=== PATIENT | female | born 1930 ===

== ENCOUNTER 2018-05-21 12:51 | Inpatient (IN) | payer MEDICARE ==
--- NOTE | 2018-05-21 13:35 | RAD ---
Date of service: 05/21/2018 HISTORY: SOB COMPARISON: No prior. FINDINGS: LUNGS: Possible left basilar opacity. Rule out pneumonia. Followup advised. No other abnormal opacity elsewhere. PLEURA: No significant pleural effusion identified, no pneumothorax apparent. CARDIOVASCULAR: Normal heart size. Sternotomy wires noted. Likely status post CABG. OSSEOUS STRUCTURES: No significant abnormalities. VISUALIZED UPPER ABDOMEN: Normal. OTHER FINDINGS: None. IMPRESSION: Left basilar opacity. Rule out pneumonia. Followup advised.
[2018-05-21 13:47] LABS: EOS # 0.1 K/uL (0.0-0.7); EOS % 2.6 % (0.0-4.0); HEMOGLOBIN 14.5 g/dL (12.0-16.0); LYMPH # 0.7 K/uL (1.0-4.3); LYMPH % 15.4 % (20.0-40.0); MEAN CORPUSCULAR HEMOGLOBIN 29.2 pg (27.0-31.0); MEAN CORPUSCULAR HGB CONC 32.5 g/dL (33.0-37.0); MEAN PLATELET VOLUME 8.6 fl (7.2-11.7); MONO # 0.5 K/uL (0.0-0.8); MONO % 11.5 % (0.0-10.0); NEUT # 3.3 K/uL (1.8-7.0); NEUT % 69.5 % (50.0-75.0); NRBC % 0.1 % (0.0-0.0); RBC 4.95 Mil/uL (3.80-5.20); RED CELL DISTRIBUTION WIDTH 14.2 % (11.5-14.5); WHITE BLOOD COUNT 4.8 K/uL (4.8-10.8)
--- NOTE | 2018-05-21 13:53 | ED PDOC ---
HPI: General Adult Time Seen by Provider: 05/21/18 13:00 Chief Complaint (Nursing): Lower Extremity Problem/Injury Chief Complaint (Provider): shortness of breath History Per: Patient, EMS History/Exam Limitations: physical impairment Current Symptoms Are (Timing): Still Present Severity: Moderate Recently: Hospitalized Additional Complaint(s): 87yo female presents via EMS from home c/o SOB, inability to ambulate and generalized weakness. States she was discharged from [facility] last night around midnight but unable to care for self and lives alone, SOB worsened. On home oxygen intermittently for COPD/emphysema, recently increasing O2 requirements. Also notes LE edema L>R. Past Medical History Reviewed: Historical Data, Nursing Documentation, Vital Signs Vital Signs: Last Vital Signs Temp 97.5 F L 05/24/18 08:02 Pulse 59 L 05/24/18 08:02 Resp 20 05/24/18 08:02 BP 137/75 05/24/18 08:02 Pulse Ox 99 05/24/18 08:02 - Medical History PMH: CAD, COPD, HTN - Surgical History Surgical History: CABG - Family History Family History: States: Unknown Family Hx - Living Arrangements Living Arrangements: Alone - Social History Current smoker - smoking cessation education provided: No (quit) - Home Medications Home Medications: Ambulatory Orders Medication Instructions Recorded Albuterol Sulfate [Proair Hfa] 2 puff IH Q6 PRN 05/21/18 Aspirin [Ecotrin] 81 mg PO DAILY 05/21/18 Bisoprolol [Zebeta] 5 mg PO DAILY 05/21/18 Clopidogrel [Plavix] 75 mg PO DAILY 05/21/18 Furosemide [Lasix] 20 mg PO DAILY 05/21/18 Losartan/Hydrochlorothiazide 1 tab PO DAILY 05/21/18 [Losartan-Hctz 100-12.5 mg Tab] - Allergies Allergies/Adverse Reactions: Allergies Allergy/AdvReac Type Severity Reaction Status Date / Time No Known Allergies Allergy Verified 05/21/18 12:53 Review of Systems Constitutional: Negative for: Fever Eyes: Negative for: Vision Change ENT: Negative for: Nose Discharge Cardiovascular: Positive for: Palpitations, Orthopnea, Light Headedness Respiratory: Positive for: Cough, Shortness of Breath Gastrointestinal: Negative for: Abdominal Pain Genitourinary Female: Negative for: Dysuria Musculoskeletal: Negative for: Neck Pain Skin: Negative for: Rash Neurological: Positive for: Dizziness. Negative for: Weakness, Numbness, Headache Psych: Positive for: Anxiety. Negative for: Suicidal ideation Physical Exam - Reviewed Nursing Documentation Reviewed: Yes Vital Signs Reviewed: Yes - Physical Exam Appears: Positive for: Well, Non-toxic, No Acute Distress Head Exam: Positive for: ATRAUMATIC, NORMAL INSPECTION, NORMOCEPHALIC Skin: Positive for: Normal Color, Warm, DRY Eye Exam: Positive for: EOMI, Normal appearance, PERRL ENT: Positive for: Normal ENT Inspection Neck: Positive for: Normal, Painless ROM Cardiovascular/Chest: Positive for: Regular Rate, Rhythm Respiratory: Positive for: Decreased Breath Sounds, Respiratory Distress (mild) Gastrointestinal/Abdominal: Positive for: Soft. Negative for: Tenderness, Guarding Back: Positive for: Normal Inspection Extremity: Positive for: Pedal Edema (b/l), Calf Tenderness, Swelling (LE). Negative for: Deformity Neurologic/Psych: Positive for: Alert, Oriented. Negative for: Motor/Sensory Deficits - Laboratory Results Result Diagrams: 05/23/18 06:30 05/23/18 06:30 - ECG ECG: Positive for: Interpreted By Me ECG Rhythm: Positive for: Sinus Rhythm, ST/T Changes (anterolateral ST changes) Rate: 97 O2 Sat by Pulse Oximetry: 84 Pulse Ox Interpretation: Abnormal (hypoxia on RA) Medical Decision Making Medical Decision Making: workup for dyspnea initiated EKG sinus at 97 w concerning anterolateral ST changes no prior EKGs to compare CXR reveals possible pneumonia. Given hypoxia and presentation will obtain cultures and treat w Abx. Labs reviewed revealing elev trop 0.032 w elevated BNP. PMD Dr Lang contacted no old EKGs Her cardio Dr Anders office contacted no visits in 2 years Last echo 2008- normal Admit mobile application tester Dr Bo Werner to followup CTA chest and admit ICU vs tele. D/w Dr Dubois ICU also - if CTA positive will take to ICU otherwise stable for tele. Dr Colbert mobile application tester cardio contacted and EKGs (initial and repeat) reviewed, will consult. Attempt to get old records from [facility] including prior EKG. Disposition - Clinical Impression Clinical Impression: NSTEMI (non-ST elevated myocardial infarction), Emphysema of lung - Patient ED Disposition Is Patient to be Admitted: Yes - Disposition Disposition: Transfer of Care Disposition Time: 17:00 Condition: SERIOUS - Pt Status Changed To: Hospital Disposition Of: Inpatient - Admit Certification Admit to Inpatient:: After my assessment, the patient will require hospitalization for at least two midnights. This is because of the severity of symptoms shown, intensity of services needed, and/or the medical risk in this patient being treated as an outpatient. - POA Present On Arrival: None
[2018-05-21 13:58] LABS: PROTHROMBIN TIME 10.9 Seconds (9.8-13.1)
[2018-05-21 14:00] LABS: PARTIAL THROMBOPLASTIN TIME 36.2 Seconds (25.6-37.1)
[2018-05-21] MEDS ORDERED: Azithromycin 500 MG in Sodium Chloride 0.9% 250 ML IVPB STA (14:00)
[2018-05-21 14:04] LABS: ALB/GLOB RATIO 1.2 (1.0-2.1); ALT/SGPT 21 U/L (9-52); AST/SGOT 30 U/L (14-36); B-TYPE NATRIURETIC PEPTIDE 10000 pg/ml (0-900); BLOOD UREA NITROGEN 12 mg/dl (7-17); CALCIUM 9.5 mg/dL (8.4-10.2); GFR NON-AFRICAN AMERICAN > 60
[2018-05-21] MEDS ORDERED: cefTRIAXone (Rocephin) 1 gm Inj ONE (14:14)
[2018-05-21] MEDS ORDERED: Albuterol-Ipratrop 3 mg / 0.5 (3 ml) UD INH STA (14:50)
[2018-05-21] MEDS ORDERED: Albuterol-Ipratrop 3 mg / 0.5 (3 ml) UD ONE (15:12)
[2018-05-21] MEDS ORDERED: Azithromycin 500 MG IV IVPB ONE (15:12)
--- NOTE | 2018-05-21 16:21 | CARD ---
APPROVED REPORT Date of service: 05/21/2018 EKG Measurement Heart [id number] <Conclusion> Normal sinus rhythm ST & Marked T wave abnormality, consider anterolateral ischemia Prolonged QT Abnormal ECG
[2018-05-21] MEDS ORDERED: Sodium Chloride 0.9% 50 ML IV ONE (17:33)
[2018-05-21] MEDS ORDERED: Iodixanol 320 MG/ML 100 ML BOTTLE IV ONE (17:33)
--- NOTE | 2018-05-21 18:31 | ED PDOC ---
- Laboratory Results Result Diagrams: 05/22/18 06:00 05/22/18 06:00 - ECG O2 Sat by Pulse Oximetry: 84 (RA) Pulse Ox Interpretation: Normal Medical Decision Making Medical Decision Making: Time: 1699 -- Received endorsement from Dr. Palma. Patient with severe cardiac disease presents to the ED with shortness of breath. Lab work demonstrates elevated Troponin and Pro-BNP levels with EKG findings of Wellens Syndrome. Dr. Palma has discussed with Dr. Johnson of Cardiology, Dr. Pond of Medical Services and Dr. Dubois of ICU. -- At this time, CT Chest to rule out pneumonia and US to rule out DVT are pending. -- Patient to be admitted but placement to ICU vs Telemetry are to be determined after results of CT Chest appear. Time: 2005 CTA RESULTS FINDINGS: Pulmonary arteries: No filling defects within the central, segmental, or visualized subsegmental pulmonary arteries. Aorta: The aorta demonstrates moderate atherosclerotic calcification. No thoracic aortic aneurysm. Lungs: Subpleural reticular opacities throughout both lower lobes with subtle intervening groundglass. Pulmonary evaluation is somewhat limited by respiratory motion. Pleural space: Normal. No significant effusion. No pneumothorax. Heart: Status post coronary artery bypass. Severe calcific atherosclerosis of the [place] coronary arteries. No significant pericardial effusion. No evidence of RV dysfunction. Bones/joints: Median sternotomy. No acute fracture. No dislocation. Soft tissues: Normal. Lymph nodes: Multiple prominent mediastinal lymph nodes are present measuring up to 8mm in the prevascular region and diffuse and extensive osseous demineralization. Arthrosis of the glenohumeral joints. Diffuse thoracic spondylosis. Moderate thoracolumbar levocurvature. No acute osseous abnormality. Extensive centrilobular emphysema intervening 5 mm left apical pulmonary nodule (axial image 13). Gallbladder and bile ducts: Numerous gallstones are present layering within the dependent as the gallbladder. Upper Abdomen: Indeterminate stranding and peritoneal thickening within the imaged right upper quadrant (axial image 126). IMPRESSION: 1. No pulmonary embolism. 2. Diffuse and severe emphysema. 3. Superimposed subpleural reticular and groundglass opacities may represent superimposed interstitial lung disease. 4. Status post coronary bypass with severe calcific atherosclerosis of the [place] coronary arteries. 5. Cholelithiasis. 6. Nonspecific partially imaged right peritoneal thickening or fat stranding within the imaged upper quadrant, only seen on the caudal most images. If there is concern for an abnormality within the abdomen, consider dedicated CT of the abdomen and pelvis. A contrast enhanced exam would offer increased sensitivity and specificity if renal function permits. Thank you for allowing us to participate in the care of your patient. Dictated and Authenticated by: Shayne Tang DO 05/21/2018 8:06 PM Eastern Time ([place] & [place]) DW pt and family findings. Pt will be hospitalized for NSTEMI. Dr Johnson came to ER to evaluate patient and lovenox ordered. Scribe Attestation: Documented by Antonio Mclaughlin acting as a scribe for Dr. Beryl Soriano. Provider Scribe Attestation: All medical record entries made by the Scribe were at my direction and personally dictated by me. I have reviewed the chart and agree that the record accurately reflects my personal performance of the history, physical exam, medical decision making, and the department course for this patient. I have also personally directed, reviewed, and agree with the discharge instructions and disposition. Disposition Counseled Patient/Family Regarding: Studies Performed, Diagnosis - Clinical Impression Clinical Impression: NSTEMI (non-ST elevated myocardial infarction) - POA Present On Arrival: None - Disposition Disposition: Admitted as In-Patient Disposition Time: 20:00 Condition: SERIOUS
[2018-05-21] MEDS ORDERED: Enoxaparin 60 mg Syringe SC STA (21:09)
[2018-05-21] MEDS ORDERED: Magnesium Sulfate 2 gm/50 ml 2 GM/50 ML BAG IVPB ONE (21:09)
[2018-05-21 21:35] LABS: TROPONIN I 0.228 ng/mL (0.00-0.120)
[2018-05-22] MEDS: MethylPREDNISolone 40 mg Vial IVP SCH ×4 (04:19→21:26)
[2018-05-22] MEDS ORDERED: Pneumococcal 23-Valent Vaccine IM ONE (06:23)
[2018-05-22] MEDS: Ipratropium 0.02% Inhal Soln (0.5 mg/2.5 ml) UD IH SCH ×3 (07:11→19:09)
[2018-05-22] MEDS: Levalbuterol 0.63 MG/3 ML Inhal Soln UD INH SCH ×3 (07:11→19:09)
[2018-05-22 07:39] LABS: HEMOGLOBIN 13.5 g/dL (12.0-16.0); MEAN CELL VOLUME 89.1 fl (81.0-99.0); MEAN CORPUSCULAR HEMOGLOBIN 29.3 pg (27.0-31.0); MEAN CORPUSCULAR HGB CONC 32.9 g/dL (33.0-37.0); RBC 4.61 Mil/uL (3.80-5.20); RED CELL DISTRIBUTION WIDTH 13.5 % (11.5-14.5); WHITE BLOOD COUNT 2.6 K/uL (4.8-10.8)
[2018-05-22 07:59] LABS: T4 8.22 ug/dl (5.5-11.0)
[2018-05-22 08:16] LABS: LDL CHOLESTEROL 94 mg/dL (0-129)
--- NOTE | 2018-05-22 08:20 | CARD ---
APPROVED REPORT Date of service: 05/21/2018 <Conclusion> Normal sinus rhythm ST & T wave abnormality, consider inferior ischemia ST & T wave abnormality, consider anterolateral ischemia Prolonged QT Abnormal ECG
[2018-05-22 08:27] LABS: ALB/GLOB RATIO 1.2 (1.0-2.1); ALBUMIN 3.3 g/dL (3.5-5.0); ALT/SGPT 20 U/L (9-52); AST/SGOT 29 U/L (14-36); BLOOD UREA NITROGEN 11 mg/dl (7-17); GFR NON-AFRICAN AMERICAN > 60; HDL CHOLESTEROL 57 MG/DL (30-70)
[2018-05-22] MEDS ORDERED: Azithromycin 500 MG in Sodium Chloride 0.9% 250 ML IVPB SCH ×2 (09:00→16:15)
--- NOTE | 2018-05-22 09:00 | CP.PCM.CON ---
History of Present Illness - History of Present Illness History of Present Illness: CONSULT DONE ON 05/21/18 925PM asked to see pt by dr ricci. 87 y/o female admitted secondary to cheswt pressure with minimal exertion. 4/10, nonradiating, midsternal tightness. occurs with exertion and relieved with rest. occasionally will occur at rest. associated with dyspnea, palp and feeling of doom. 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 pt has a hx of 4 vessel cabg in 2001. she does not recall having any cardiac caths after cabg. Review of Systems - Constitutional Constitutional: As Per HPI, Fatigue. absent: Anorexia, Chills, Daytime Sleepiness, Excessive Sweating, Fever, Frequent Falls, Headache, Increased Appetite, Malaise, Night Sweats, Snoring, Sleep Apnea, Weight Gain, Weight Loss , Weakness, Other - EENT Eyes: As Per HPI. absent: Blind Spots, Blurred Vision, Change in Vision, Decreased Night Vision, Diplopia, Discharge, Dry Eye, Exophthalmos, Floaters, Irritation, Itchy Eyes, Loss of Peripheral Vision, Pain, Photophobia, Requires Corrective Lenses, Sees Flashes, Spots in Vision, Tunnel Vision, Other Visual Disturbances, Loss of Vision, Other Ears: As Per HPI. absent: Decreased Hearing, Ear Discharge, Ear Pain, Tinnitus , Abnormal Hearing, Disequilibrium, Dizziness, Other Nose/Mouth/Throat: As Per HPI. absent: Epistaxis, Nasal Congestion, Nasal Discharge, Nasal Obstruction, Nasal Trauma, Nose Pain, Post Nasal Drip, Sinus Pain, Sinus Pressure, Bleeding Gums, Change in Voice, Dental Pain, Dry Mouth, Dysphagia, Halitosis, Hoarsness, Lip Swelling, Mouth Lesions, Mouth Pain, Odynophagia, Sore Throat, Throat Swelling, Tongue Swelling, Facial Pain, Neck Pain, Neck Mass, Other - Breasts Breasts: As Per HPI. absent: Change in Shape, Mass, Pain, Nipple Discharge, Nipple Inversion, Skin Changes, Swelling, Other - Cardiovascular Cardiovascular: As Per HPI, Chest Pain at Rest, Chest Pain with Activity, Dyspnea on Exertion, Leg Edema. absent: Acrocyanosis, Chest Pain, Claudication , Diaphoresis, Dyspnea, Edema, Irregular Heart Rhythm, Pain Radiating to Arm/ Neck/Jaw, Leg Ulcers, Lightheadedness, Orthopnea, Palpitations, Paroxysmal Nocturnal Dyspnea, Pedal Edema, Radiating Pain, Rapid Heart Rate, Slow Heart Rate, Syncope, Other - Respiratory Respiratory: As Per HPI, Dyspnea. absent: Cough, Hemoptysis, Dyspnea on Exertion, Wheezing, Snoring, Stridor, Pain on Inspiration, Chest Congestion, Excessive Mucous Production, Change in Mucous Color, Pain with Coughing, Other - Gastrointestinal Gastrointestinal: As Per HPI. absent: Abdominal Pain, Belching, Bloating, Change in Bowel Habits, Change in Stool Character, Coffee Ground Emesis, Constipation, Cramping, Diarrhea, Dyspepsia, Dysphagia, Early Satiety, Excessive Flatus, Fecal Incontinence, Heartburn, Hematemesis, Hematochezia, Loose Stools, Melena, Nausea, Odynophagia, Temesmus, Vomiting, Other - Genitourinary Genitourinary: As Per HPI. absent: Change in Urinary Stream, Difficulty Urinating, Dysuria, Flank Pain, Hematuria, Pyuria, Nocturia, Urinary Incontinence, Urinary Frequency, Urinary Hesitance, Urinary Urgency, Voiding Freq/Small Amts, Freq UTI, Hx Renal/Bladder Calculi, Hx /Renal Surgery, Bladder Distension, Other - Reproductive: Female Reproductive:Female: As Per HPI. absent: Amenorrhea, Amenorrhea/ Control, Currently Menstual, Cycle <21 Days, Cycle >35 Days, Cycle Variable, Menses 1-7 Days, Menses >/= 8 Days, Menses Variable, Cycle > 4 Weeks Between, No Menses for 6 Months, Heavy Menses, Light Menses, Normal Menses, Spotting Between Cycles , S/P Hysterectomy, Menopausal, Post Menopausal, Premenarche, Abnormal Vaginal Bleeding, Dysmenorrhea, Dyspareunia, Genital Lesions, Genital Pruritis, Pelvic Pain, Prolapse Symptoms, Sexual Dysfunction, Vaginal Discharge, Vaginal Dryness , Vaginal Odor, Vaginal Pruritis, Other - Menstruation Menstruation: As Per HPI. absent: Amenorrhea, Amenorrhea/ Control, Currently Menstual, Cycle <21 Days, Cycle >35 Days, Cycle Variable, Menses 1-7 Days, Menses >/= 8 Days, Menses Variable, Cycle > 4 Weeks Between, No Menses for 6 Months, Heavy Menses, Light Menses, Normal Menses, Spotting Between Cycles , S/P Hysterectomy, Menopausal, Post Menopausal, Premenarche, Abnormal Vaginal Bleeding, Dysmenorrhea, Other - Musculoskeletal Musculoskeletal: As Per HPI. absent: Abnormal Gait, Arthralgias, Atrophy, Back Pain, Deformity, Joint Swelling, Limited Range of Motion, Loss of Height, Muscle Cramps, Muscle Weakness, Myalgias, Neck Pain, Numbness, Radiating Pain into Limb, Stiffness, Tingling, Other - Integumentary Integumentary: As Per HPI. absent: Acne, Alopecia, Bleeding Lesions, Change in Hair, Change in Nails, Change in Pigmentation, Changing Lesions, Dry Skin, Erythema, Furuncle, Hirsutism, Lesions, New Lesions, Non-Healing Lesions, Photosensitivity, Pruritus, Rash, Skin Pain, Skin Ulcer, Sores, Striae, Swelling , Unusual Bruising, Wounds, Jaundice, Other - Neurological Neurological: As Per HPI. absent: Abnormal Gait, Abnormal Hearing, Abnormal Movements, Abnormal Speech, Behavioral Changes, Burning Sensations, Confusion, Convulsions, Disequilibrium, Dizziness, Numbness, Focal Weakness, Frequent Falls , Headaches, Lack of Coordination, Loss of Vision, Memory Loss, Paresthesias, Radicular Pain, Restless Legs, Sensory Deficit, Syncope, Tingling, Tremor, Vertigo, Weakness, Other Visual Disturbances, Other - Psychiatric Psychiatric: As Per HPI. absent: Abnormal Sleep Pattern, Anhedonia, Anxiety, Auditory Hallucinations, Behavioral Changes, Change in Appetite, Change in Libido, Confusion, Depression, Difficulty Concentrating, Hallucinations, Homicidal Ideation, Hopelessness, Irritability, Memory Loss, Mood Swings, Panic Attacks, Paranoia, Suicidal Ideation, Visual Hallucinations, Tactile Hallucinations, Other - Endocrine Endocrine: As Per HPI. absent: Change in Body Appearance, Change in Libido, Cold Intolorance, Deepening of Voice, Excessive Sweating, Fatigue, Flushing, Heat Intolorance, Increase in Ring/Shoe/Hat Size, Palpitations, Polydipsia, Polyphagia, Polyuria, Other - Hematologic/Lymphatic Hematologic: As Per HPI. absent: Easy Bleeding, Easy Bruising, Lymphadenopathy , Other Past Patient History - Past Medical History & Family History Past Medical History?: Yes - Past Social History Smoking Status: Former Smoker Chewing Tobacco Use: No Cigar Use: No Alcohol: None Drugs: Denies Home Situation {Lives}: Alone Domestic Violence: Negative - CARDIAC Hx Cardiac Disorders: Yes Hx Hypertension: Yes Other/Comment: cabg as above - PULMONARY Hx Respiratory Disorders: Yes Hx Chronic Obstructive Pulmonary Disease (COPD): Yes - HEENT Hx Cataracts: Yes - RENAL Hx Chronic Kidney Disease: No - ENDOCRINE/METABOLIC Hx Endocrine Disorders: No - MUSCULOSKELETAL/RHEUMATOLOGICAL Hx Falls: No Hx Unsteady Gait: Yes - GASTROINTESTINAL Hx Gastrointestinal Disorders: No - GENITOURINARY/GYNECOLOGICAL Hx Genitourinary Disorders: No - PSYCHIATRIC Hx Substance Use: No - SURGICAL HISTORY Hx Coronary Artery Bypass Graft: Yes - ANESTHESIA Hx Anesthesia: Yes Hx Anesthesia Reactions: No Hx Malignant Hyperthermia: No Has any member of the family had a problem w/ anesthesia?: No Meds Allergies/Adverse Reactions: Allergies Allergy/AdvReac Type Severity Reaction Status Date / Time No Known Allergies Allergy Verified 05/21/18 12:53 - Medications Medications: Current Medications Aspirin (Ecotrin) 325 mg PO DAILY [facility] Bisoprolol Fumarate (Zebeta) 5 mg PO DAILY [facility] Clopidogrel Bisulfate (Plavix) 75 mg PO DAILY [facility] Enoxaparin Sodium (Lovenox) 60 mg SC Q12 [facility] PRN Reason: Protocol Furosemide (Lasix) 20 mg PO DAILY [facility] Hydrochlorothiazide (Microzide) 12.5 mg PO DAILY [facility] Ceftriaxone Sodium 1 gm/ (Sodium Chloride) 100 mls @ 100 mls/hr IVPB DAILY [facility] PRN Reason: Protocol Azithromycin 500 mg/ Sodium (Chloride) 250 mls @ 250 mls/hr IVPB DAILY [facility] PRN Reason: Protocol Ipratropium [place] (Atrovent) 0.5 mg IH RQ6 [facility] Last Admin: 05/22/18 07:11 Dose: 0.5 mg Levalbuterol HCl (Xopenex) 0.63 mg INH RQ6 [facility] Last Admin: 05/22/18 07:11 Dose: 0.63 mg Losartan Potassium (Cozaar) 100 mg PO DAILY [facility] Methylprednisolone (Solu-Medrol) 30 mg IVP Q6 [facility] Last Admin: 05/22/18 04:19 Dose: 30 mg Physical Exam - Constitutional Appears: Non-toxic - Head Exam Head Exam: ATRAUMATIC, NORMAL INSPECTION, NORMOCEPHALIC - Eye Exam Eye Exam: EOMI, Normal appearance, PERRL. absent: Conjunctival injection, Nystagmus, Periorbital swelling, Periorbital tenderness, Scleral icterus Pupil Exam: NORMAL ACCOMODATION, PERRL. absent: Fixed, Irregular, Miosis, Mydriatic, Unequal - ENT Exam ENT Exam: Mucous Membranes Moist, Normal Exam. absent: Mucous Membranes Dry, Normal External Ear Exam, Normal Oropharynx, TM's Normal Bilaterally - Neck Exam Neck exam: Positive for: Normal Inspection. Negative for: Full Rom, Lymphadenopathy, Meningismus, Tenderness, Thyromegaly - Respiratory Exam Respiratory Exam: Decreased Breath Sounds, Clear to Auscultation Bilateral, Prolonged Expiratory Phase, NORMAL BREATHING PATTERN. absent: Accessory Muscle Use, Chest Wall Tenderness, Rales, Rhonchi, Wheezes, Respiratory Distress, Stridor - Cardiovascular Exam Cardiovascular Exam: REGULAR RHYTHM, +S1, +S2, Systolic Murmur. absent: Bradycardia, Tachycardia, Clicks, Diastolic murmur, Gallop, Irregular Rhythm, JVD, RRR, Rubs, +S4 - GI/Abdominal Exam GI & Abdominal Exam: Normal Bowel Sounds, Soft. absent: Bruit, Diminished Bowel Sounds, Distended, Firm, Guarding, Hernia, Hyperactive Bowel Sounds, Hypoactive Bowel Sounds, Mass, Organomegaly, Pulsatile Mass, Rebound, Rigid, Tenderness - Rectal Exam Rectal Exam: Deferred - Extremities Exam Extremities exam: Positive for: normal inspection. Negative for: calf tenderness, full ROM, joint swelling, normal capillary refill, pedal edema, tenderness, pedal pulses present - Back Exam Back exam: NORMAL INSPECTION. absent: CVA tenderness (L), CVA tenderness (R), FULL ROM, muscle spasm, paraspinal tenderness, rash noted, tenderness, vertebral tenderness - Neurological Exam Neurological exam: Alert, CN II-XII Intact, Normal Gait, Oriented x3, Reflexes Normal - Psychiatric Exam Psychiatric exam: Normal Affect, Normal Mood - Skin Skin Exam: Dry, Intact, Normal Color, Warm Results - Vital Signs Recent Vital Signs: Last Vital Signs Temp 97.6 F 05/22/18 07:59 Pulse 75 05/22/18 07:59 Resp 18 05/22/18 07:59 BP 123/76 05/22/18 07:59 Pulse Ox 96 05/22/18 07:59 - Labs Result Diagrams: 05/22/18 06:00 05/22/18 06:00 Labs: Laboratory Results - last 24 hr 05/21/18 05/21/18 05/21/18 13:34 13:34 13:34 WBC 4.8 RBC 4.95 Hgb 14.5 Hct 44.6 MCV 90.0 MCH 29.2 MCHC 32.5 L RDW 14.2 Plt Count 274 MPV 8.6 Neut % (Auto) 69.5 Lymph % (Auto) 15.4 L Lewis % (Auto) 11.5 H Eos % (Auto) 2.6 Baso % (Auto) 1.0 Neut # (Auto) 3.3 Lymph # (Auto) 0.7 L Lewis # (Auto) 0.5 Eos # (Auto) 0.1 Baso # (Auto) 0.0 PT 10.9 INR 1.0 APTT 36.2 Sodium 140 Potassium 4.3 Chloride 94 L Carbon Dioxide 39 H Anion Gap 11 BUN 12 Creatinine 0.6 L Est GFR ( Amer) > 60 Est GFR (Non-Af Amer) > 60 Random Glucose 141 H Calcium 9.5 Total Bilirubin 0.9 AST 30 ALT 21 Alkaline Phosphatase 82 Troponin I 0.3210 H* NT-Pro-B Natriuret Pep 90544 H Total Protein 7.2 Albumin 4.0 Globulin 3.2 Albumin/Globulin Ratio 1.2 Triglycerides Cholesterol LDL Cholesterol Direct HDL Cholesterol Thyroxine (T4) TSH 3rd Generation 05/21/18 05/22/18 05/22/18 20:53 06:00 06:00 WBC 2.6 L RBC 4.61 Hgb 13.5 Hct 41.0 MCV 89.1 MCH 29.3 MCHC 32.9 L RDW 13.5 Plt Count 275 MPV Neut % (Auto) Lymph % (Auto) Lewis % (Auto) Eos % (Auto) Baso % (Auto) Neut # (Auto) Lymph # (Auto) Lewis # (Auto) Eos # (Auto) Baso # (Auto) PT INR APTT Sodium 137 Potassium 4.0 Chloride 96 L Carbon Dioxide 38 H Anion Gap 7 L BUN 11 Creatinine 0.6 L Est GFR ( Amer) > 60 Est GFR (Non-Af Amer) > 60 Random Glucose 124 H Calcium 9.0 Total Bilirubin 0.6 AST 29 ALT 20 Alkaline Phosphatase 64 Troponin I 0.2280 H* 0.1850 H* NT-Pro-B Natriuret Pep 56714 H Total Protein 5.9 L Albumin 3.3 L Globulin 2.6 Albumin/Globulin Ratio 1.2 Triglycerides 87 Cholesterol 184 LDL Cholesterol Direct 94 HDL Cholesterol 57 Thyroxine (T4) 8.22 TSH 3rd Generation 0.79 Assessment & Plan (1) NSTEMI (non-ST elevated myocardial infarction) Status: Acute (2) Hx of CABG Status: Acute (3) Hx of four vessel coronary artery bypass graft Status: Acute (4) HTN (hypertension) Status: Acute (5) Dyslipidemia Status: Acute (6) COPD (chronic obstructive pulmonary disease) Status: Acute (7) History of tobacco abuse Status: Acute (8) Prolonged Q-T interval on ECG Status: Acute - Assessment and Plan (Free Text) Plan: PT WILL NEED CATH (WITH SURGICAL BACK UP). WILL SCHEDULE FOR CATH AT [facility] [place] ON THURSDAY. 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 I STOPPED AZITHROMYOCIN DUE TO QT PROLONGATION AND T WAVE ABN CHECK ECHO, MONITOR TROP AND QT STOP HCTZ ASA, LOVENOX, INCREASE BB DOSE DONE PRN SL NTG 95 MIN TOTAL CARE TIME.
[2018-05-22] MEDS: Enoxaparin 60 mg Syringe SC SCH ×4 (09:15→21:26)
[2018-05-22] MEDS: Aspirin 325 mg EC Tablets PO SCH (09:25)
--- NOTE | 2018-05-22 16:52 | US ---
Date of service: 05/21/2018 PROCEDURE: Bilateral lower extremity venous duplex Doppler. HISTORY: Edema LE pain COMPARISON: None available. TECHNIQUE: Bilateral common femoral, superficial femoral, popliteal and posterior tibial veins were evaluated. Flow was assessed with color Doppler, compressibility, assessment of phasic flow and augmentation response. FINDINGS: COMMON FEMORAL VEIN: Right CFV: Unremarkable. Left CFV: Unremarkable. SUPERFICIAL FEMORAL VEIN: Right SFV: Unremarkable. Left SFV: Unremarkable. POPLITEAL VEIN: Right Popliteal: Unremarkable. Left Popliteal: Unremarkable. POSTERIOR TIBIAL VEIN: Right PTV: Unremarkable. Left PTV: Unremarkable. OTHER FINDINGS: None. IMPRESSION: No evidence of deep venous thrombosis.
--- NOTE | 2018-05-22 17:25 | CT ---
Date of service: 05/21/2018 PROCEDURE: CT Chest with contrast (Pulmonary Angiogram) HISTORY: SOB elevated BNP and trop r/o PE COMPARISON: None available. TECHNIQUE: Axial computed tomography images were obtained of the chest in the pulmonary arterial phase of enhancement. Coronal and sagittal reformatted images were created and reviewed. Intravenous contrast dose: 85 cc Visipaque 320 Radiation dose: Total exam DLP = 276.91 mGy-cm. This CT exam was performed using one or more of the following dose reduction techniques: Automated exposure control, adjustment of the mA and/or kV according to patient size, and/or use of iterative reconstruction technique. FINDINGS: PULMONARY ARTERIES: The visualized pulmonary trunk, right and left main, lobar, segmental and proximal subsegmental branches of the pulmonary arteries appear well opacified with no definitive filling defects seen to suggest acute central pulmonary embolus. Pulmonary trunk measures approximately 3.2 cm. AORTA: No acute findings. No thoracic aortic aneurysm. Ascending thoracic aorta measures approximately 3.3 cm and descending thoracic aorta measures approximately 2.5 cm. LUNGS: Severe centrilobular/panlobular emphysematous changes upper lobe predominance. Mild passive/dependent type atelectasis both posterior lower lung zones right greater than left. . PLEURAL SPACES: Unremarkable. No effusion or pneumothorax. HEART: Heart size within range of normal. No significant pericardial effusion. Sternotomy and CABG surgery. No significant pericardial effusion. LYMPH NODES: There are a few small nonspecific mediastinal and hilar lymph nodes. Small hiatal hernia with slight wall thickening of the distal esophagus likely due to protrusion gastric mucosa. Possibility of esophagitis not excluded. BONES, CHEST WALL: Multilevel degenerative spondylosis of the thoracic spine. No acute compression fractures no retropulsed fragments. Degenerative osteoarthritis both shoulder girdles OTHER FINDINGS: Cholelithiasis. Questionable on linear peritoneal thickening right upper quadrant of the abdomen IMPRESSION: No evidence pulmonary embolus. Severe emphysematous changes upper lobe predominance as above. Cholelithiasis Nonspecific appearing peritoneal thickening right upper quadrant of the abdomen. Consider followup CT scan of the abdomen and pelvis.
--- NOTE | 2018-05-22 19:47 | CP.PCM.HP ---
History of Present Illness - History of Present Illness History of Present Illness: CC: SOB. 87 y/o F, Hx of CABG with 4 vessels on 2001, HTN, CHF, COPD. Pt was brought to ER [facility] on 05/21/18 via EMS to be evaluated for increased SOB on DOA associated to BARR, generalized weakness unable to ambulate. Pt was discharged night [employer] from [facility] but was unable to care for self, while at home SOB increased, Pt using O2 at home for COPD, Emphysema with no relief. Worsening symptoms: Midsternal chest pressure/tightness on minimal exertion and at times at rest. Aggravated factor: Walking. Pt denied: Fever, chills, sweats, n/v/d, abdominal pain, urinary symptoms, cough, sick contact, recent travel out of [facility]. CXR showed: L basilar opacity , rule out PNA. EKG: Normal sinus rhythm, ST and T wave abnormality, consider inferior and anterolateral ischemia. Ext U-S: No DVT. Chest CT: Severe emphysematous changes upper lobe, atelectasis lower lobes R>L. Present on Admission - Present on Admission Any Indicators Present on Admission: No Review of Systems - Constitutional Constitutional: Weakness - EENT Eyes: Other Visual Disturbances (cataracts) Nose/Mouth/Throat: Other (negative) - Cardiovascular Cardiovascular: Chest Pain, Chest Pain at Rest, Chest Pain with Activity, Dyspnea - Respiratory Respiratory: Dyspnea, Dyspnea on Exertion - Gastrointestinal Gastrointestinal: Other (negative) - Genitourinary Genitourinary: Other (negative) - Musculoskeletal Musculoskeletal: Muscle Weakness - Integumentary Integumentary: Other (negative) - Neurological Neurological: Weakness - Psychiatric Psychiatric: Other (negative) - Endocrine Endocrine: Other (negative) - Hematologic/Lymphatic Hematologic: Other (negative) Past Patient History - Past Medical History & Family History Past Medical History?: Yes Pertinent Family History: Unknown - Past Social History Smoking Status: Former Smoker Chewing Tobacco Use: No Cigar Use: No Alcohol: None Drugs: Denies Home Situation {Lives}: Alone Domestic Violence: Negative - CARDIAC Hx Cardiac Disorders: Yes Hx Hypertension: Yes Other/Comment: cabg as above - PULMONARY Hx Respiratory Disorders: Yes Hx Chronic Obstructive Pulmonary Disease (COPD): Yes - HEENT Hx Cataracts: Yes - RENAL Hx Chronic Kidney Disease: No - ENDOCRINE/METABOLIC Hx Endocrine Disorders: No - MUSCULOSKELETAL/RHEUMATOLOGICAL Hx Falls: No Hx Unsteady Gait: Yes - GASTROINTESTINAL Hx Gastrointestinal Disorders: No - GENITOURINARY/GYNECOLOGICAL Hx Genitourinary Disorders: No - PSYCHIATRIC Hx Substance Use: No - SURGICAL HISTORY Hx Coronary Artery Bypass Graft: Yes - ANESTHESIA Hx Anesthesia: Yes Hx Anesthesia Reactions: No Hx Malignant Hyperthermia: No Has any member of the family had a problem w/ anesthesia?: No Meds Allergies/Adverse Reactions: Allergies Allergy/AdvReac Type Severity Reaction Status Date / Time No Known Allergies Allergy Verified 05/21/18 12:53 Physical Exam - Constitutional Appears: Chronically Ill - Head Exam Head Exam: NORMAL INSPECTION - Eye Exam Eye Exam: PERRL - ENT Exam ENT Exam: Normal Oropharynx - Neck Exam Neck exam: Positive for: Normal Inspection - Respiratory Exam Respiratory Exam: Decreased Breath Sounds (b/l) - Cardiovascular Exam Cardiovascular Exam: REGULAR RHYTHM, Systolic Murmur - GI/Abdominal Exam GI & Abdominal Exam: Normal Bowel Sounds, Soft - Extremities Exam Additional comments: legs edema - Back Exam Back exam: NORMAL INSPECTION - Neurological Exam Neurological exam: Alert, CN II-XII Intact, Oriented x3, Reflexes Normal - Psychiatric Exam Psychiatric exam: Normal Mood - Skin Skin Exam: Normal Color, Warm Results - Vital Signs Recent Vital Signs: Last Vital Signs Temp 98.9 F 05/22/18 19:45 Pulse 76 05/22/18 19:45 Resp 16 05/22/18 19:45 BP 126/59 L 05/22/18 19:45 Pulse Ox 95 05/22/18 19:45 reviewed Rosangela - Labs Result Diagrams: 05/22/18 06:00 05/22/18 06:00 Labs: Laboratory Results - last 24 hr 05/21/18 05/22/18 05/22/18 20:53 06:00 06:00 WBC 2.6 L RBC 4.61 Hgb 13.5 Hct 41.0 MCV 89.1 MCH 29.3 MCHC 32.9 L RDW 13.5 Plt Count 275 Sodium 137 Potassium 4.0 Chloride 96 L Carbon Dioxide 38 H Anion Gap 7 L BUN 11 Creatinine 0.6 L Est GFR ( Amer) > 60 Est GFR (Non-Af Amer) > 60 Random Glucose 124 H Calcium 9.0 Total Bilirubin 0.6 AST 29 ALT 20 Alkaline Phosphatase 64 Troponin I 0.2280 H* 0.1850 H* NT-Pro-B Natriuret Pep 14476 H Total Protein 5.9 L Albumin 3.3 L Globulin 2.6 Albumin/Globulin Ratio 1.2 Triglycerides 87 Cholesterol 184 LDL Cholesterol Direct 94 HDL Cholesterol 57 Thyroxine (T4) 8.22 TSH 3rd Generation 0.79 reviewed J.P. - EKG Data EKG comments: reviewed J.P. - Imaging and Cardiology Chest x-ray Status: Report reviewed by me (Esther.) CT scan - chest Status: Report reviewed by me (ReinierP.) Assessment & Plan (1) NSTEMI (non-ST elevated myocardial infarction) Status: Acute Priority: High (2) Prolonged Q-T interval on ECG Status: Acute Priority: High (3) Emphysema of lung Status: Chronic Priority: High (4) COPD (chronic obstructive pulmonary disease) Status: Chronic Priority: High (5) Hx of CABG Status: Chronic Priority: High (6) Hx of four vessel coronary artery bypass graft Status: Chronic Priority: High (7) HTN (hypertension) Status: Chronic Priority: Medium (8) Dyslipidemia Status: Chronic Priority: Medium (9) History of tobacco abuse Status: Chronic Priority: Medium - Assessment and Plan (Free Text) Plan: Continue O2 2 L/M, NTG S/L prn, Lovenox, ASA, Rocephin, Solu_medrol, Xopenex and rest of Tx, Cardiology consult appreciated. KEVAN holloway. - Date & Time Date: 05/22/18 Time: 14:30
[2018-05-23] MEDS: Levalbuterol 0.63 MG/3 ML Inhal Soln UD INH SCH ×5 (01:00→19:06)
[2018-05-23] MEDS: Ipratropium 0.02% Inhal Soln (0.5 mg/2.5 ml) UD IH SCH ×5 (01:00→19:06)
[2018-05-23] MEDS: MethylPREDNISolone 40 mg Vial IVP SCH ×4 (04:47→21:09)
[2018-05-23 07:11] LABS: MEAN CELL VOLUME 89.8 fl (81.0-99.0); MEAN CORPUSCULAR HEMOGLOBIN 29.7 pg (27.0-31.0); MEAN CORPUSCULAR HGB CONC 33.1 g/dL (33.0-37.0); RBC 4.73 Mil/uL (3.80-5.20); WHITE BLOOD COUNT 4.9 K/uL (4.8-10.8)
[2018-05-23 07:41] LABS: B-TYPE NATRIURETIC PEPTIDE 13600 pg/ml (0-900)
[2018-05-23 07:52] LABS: ALB/GLOB RATIO 1.3 (1.0-2.1); ALBUMIN 3.6 g/dL (3.5-5.0); ALT/SGPT 22 U/L (9-52); AST/SGOT 28 U/L (14-36); BLOOD UREA NITROGEN 14 mg/dl (7-17); CALCIUM 9.7 mg/dL (8.4-10.2); GFR NON-AFRICAN AMERICAN > 60
[2018-05-23] MEDS: Aspirin 325 mg EC Tablets PO SCH (09:04)
[2018-05-23] MEDS: Enoxaparin 60 mg Syringe SC SCH ×2 (09:09→21:09)
--- NOTE | 2018-05-23 11:56 | CARD ---
APPROVED REPORT Date of service: 05/22/2018 EKG Measurement Heart [id number] <Conclusion> Normal sinus rhythm Low voltage QRS Nonspecific T wave abnormality Abnormal ECG
--- NOTE | 2018-05-23 15:27 | CP.PCM.PN ---
Subjective - Date & Time of Evaluation Date of Evaluation: 05/23/18 - Subjective Subjective: F/U NSTEMI no C/P, no SOB, no Chest congestion Objective - Vital Signs/Intake and Output Vital Signs (last 24 hours): Temp Pulse Resp BP Pulse Ox 97.9 F 62 18 117/66 96 05/23/18 12:17 05/23/18 12:17 05/23/18 12:17 05/23/18 12:17 05/23/18 12:17 - Medications Medications: Current Medications Aspirin (Ecotrin) 325 mg PO DAILY [facility] Last Admin: 05/23/18 09:04 Dose: 325 mg Bisoprolol Fumarate (Zebeta) 10 mg PO DAILY [facility] Last Admin: 05/23/18 09:07 Dose: 10 mg Clopidogrel Bisulfate (Plavix) 75 mg PO DAILY [facility] Last Admin: 05/23/18 09:04 Dose: 75 mg Enoxaparin Sodium (Lovenox) 60 mg SC Q12 [facility] PRN Reason: Protocol Last Admin: 05/23/18 09:09 Dose: 60 mg Furosemide (Lasix) 20 mg PO DAILY [facility] Last Admin: 05/23/18 09:07 Dose: 20 mg Hydrochlorothiazide (Microzide) 12.5 mg PO DAILY [facility] Last Admin: 05/23/18 09:07 Dose: 12.5 mg Ceftriaxone Sodium 1 gm/ (Sodium Chloride) 100 mls @ 100 mls/hr IVPB DAILY [facility] PRN Reason: Protocol Last Admin: 05/23/18 09:10 Dose: 100 mls/hr Ipratropium [place] (Atrovent) 0.5 mg IH RQ6 [facility] Last Admin: 05/23/18 14:17 Dose: 0.5 mg Levalbuterol HCl (Xopenex) 0.63 mg INH RQ6 [facility] Last Admin: 05/23/18 14:17 Dose: 0.63 mg Losartan Potassium (Cozaar) 100 mg PO DAILY [facility] Last Admin: 05/23/18 09:05 Dose: 100 mg Methylprednisolone (Solu-Medrol) 30 mg IVP Q6 [facility] Last Admin: 05/23/18 09:08 Dose: 30 mg - Labs Labs: 05/23/18 06:30 05/23/18 06:30 PT 10.9 Seconds (9.8-13.1) 08/24/18 13:34 INR 1.0 05/21/18 13:34 APTT 36.2 Seconds (25.6-37.1) 05/21/18 13:34 - Constitutional Appears: No Acute Distress - Head Exam Head Exam: NORMAL INSPECTION - Eye Exam Eye Exam: PERRL - ENT Exam ENT Exam: Normal Exam - Neck Exam Neck Exam: Normal Inspection - Respiratory Exam Respiratory Exam: Clear to Ausculation Bilateral - Cardiovascular Exam Cardiovascular Exam: REGULAR RHYTHM - GI/Abdominal Exam GI & Abdominal Exam: Soft, Normal Bowel Sounds - Extremities Exam Extremities Exam: Pedal Edema (R leg, L leg no edema , chronic skin changes distal R L leg and feet) - Back Exam Back Exam: NORMAL INSPECTION - Neurological Exam Neurological Exam: Alert, CN II-XII Intact Additional comments: no focal motor/sensory deficit - Psychiatric Exam Psychiatric exam: Normal Affect - Skin Skin Exam: Warm Assessment and Plan (1) NSTEMI (non-ST elevated myocardial infarction) Status: Acute (2) Prolonged Q-T interval on ECG Status: Acute (3) Emphysema of lung Status: Chronic (4) COPD (chronic obstructive pulmonary disease) Status: Chronic (5) Hx of CABG Status: Chronic (6) 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 - Assessment and Plan (Free Text) Plan: continue Lovenox, Plavix, Lasix,Atrovent , Xopenex and rest of treatment, for Cardiac Cath
[2018-05-24] MEDS: Ipratropium 0.02% Inhal Soln (0.5 mg/2.5 ml) UD IH SCH ×5 (01:00→23:42)
[2018-05-24] MEDS: Levalbuterol 0.63 MG/3 ML Inhal Soln UD INH SCH ×4 (01:00→19:10)
[2018-05-24] MEDS: Enoxaparin 60 mg Syringe SC SCH ×2 (09:02→21:19)
[2018-05-24] MEDS: MethylPREDNISolone 40 mg Vial IVP SCH ×2 (09:04→21:19)
[2018-05-24] MEDS ORDERED: Pneumococcal 23-Valent Vaccine IM ONE (10:00)
--- NOTE | 2018-05-24 11:51 | CP.PCM.PN ---
Subjective - Date & Time of Evaluation Date of Evaluation: 05/24/18 - Subjective Subjective: F/U NSTEMI no AD, no SOB, no C/P Objective - Vital Signs/Intake and Output Vital Signs (last 24 hours): Temp Pulse Resp BP Pulse Ox 97.5 F L 97 H 20 137/75 84 L 05/24/18 08:02 05/24/18 11:14 05/24/18 08:02 05/24/18 08:02 05/24/18 11:14 - Medications Medications: Current Medications Aspirin (Ecotrin) 325 mg PO DAILY [facility] Last Admin: 05/23/18 09:04 Dose: 325 mg Bisoprolol Fumarate (Zebeta) 10 mg PO DAILY [facility] Last Admin: 05/23/18 09:07 Dose: 10 mg Clopidogrel Bisulfate (Plavix) 75 mg PO DAILY [facility] Last Admin: 05/23/18 09:04 Dose: 75 mg Enoxaparin Sodium (Lovenox) 60 mg SC Q12 [facility] PRN Reason: Protocol Last Admin: 05/24/18 09:02 Dose: Not Given Furosemide (Lasix) 20 mg PO DAILY [facility] Last Admin: 05/23/18 09:07 Dose: 20 mg Hydrochlorothiazide (Microzide) 12.5 mg PO DAILY [facility] Last Admin: 05/23/18 09:07 Dose: 12.5 mg Ceftriaxone Sodium 1 gm/ (Sodium Chloride) 100 mls @ 100 mls/hr IVPB DAILY [facility] PRN Reason: Protocol Last Admin: 05/24/18 09:03 Dose: 100 mls/hr Ipratropium [place] (Atrovent) 0.5 mg IH RQ6 [facility] Last Admin: 05/24/18 07:37 Dose: 0.5 mg Levalbuterol HCl (Xopenex) 0.63 mg INH RQ6 [facility] Last Admin: 05/24/18 07:37 Dose: 0.63 mg Losartan Potassium (Cozaar) 100 mg PO DAILY [facility] Last Admin: 05/23/18 09:05 Dose: 100 mg Methylprednisolone (Solu-Medrol) 30 mg IVP Q12 [facility] Last Admin: 05/24/18 09:04 Dose: 30 mg - Labs Labs: 05/23/18 06:30 05/23/18 06:30 PT 10.9 Seconds (9.8-13.1) 05/21/18 13:34 INR 1.0 05/21/18 13:34 APTT 36.2 Seconds (25.6-37.1) 05/21/18 13:34 - Constitutional Appears: No Acute Distress - Head Exam Head Exam: NORMAL INSPECTION - Eye Exam Eye Exam: PERRL - ENT Exam ENT Exam: Normal Exam - Neck Exam Neck Exam: Normal Inspection - Respiratory Exam Respiratory Exam: Clear to Ausculation Bilateral - Cardiovascular Exam Cardiovascular Exam: REGULAR RHYTHM - GI/Abdominal Exam GI & Abdominal Exam: Tenderness, Normal Bowel Sounds - Extremities Exam Extremities Exam: Pedal Edema (R leg, L leg no edema, chronic sking changes distal R-L leg and feet.) - Back Exam Back Exam: NORMAL INSPECTION - Neurological Exam Neurological Exam: Alert, CN II-XII Intact Additional comments: No focal motor/sensory deficit. - Psychiatric Exam Psychiatric exam: Normal Affect - Skin Skin Exam: Warm Assessment and Plan (1) NSTEMI (non-ST elevated myocardial infarction) Status: Acute (2) Prolonged Q-T interval on ECG Status: Acute (3) Emphysema of lung Status: Chronic (4) COPD (chronic obstructive pulmonary disease) Status: Chronic (5) Hx of CABG Status: Chronic (6) 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 - Assessment and Plan (Free Text) Plan: continue Lovenox, Coozar, Lasix , Zebeta, Xopenex, Atrovent, Plavix, Solu Medrol ,,Rocephin, for Cardiac Cath in am, discussed with patient
--- NOTE | 2018-05-24 12:11 | CP.PCM.PN ---
Subjective - Date & Time of Evaluation Date of Evaluation: 05/24/18 Time of Evaluation: 19:21 - Subjective Subjective: DISCUSSED CARDIAC CATH WITH PT AND SHE IS AGREEABLE. NO CP OR SOB AT THIS TIME. PT DOING WELL. EKGS ARE DYNAMIC WITH RESOLUTION OF T WAVE ABN WITH HR CONTROL. ECHO NOT DONE. TROP TRENDING DOWN. Objective - Vital Signs/Intake and Output Vital Signs (last 24 hours): Temp Pulse Resp BP Pulse Ox 97.5 F L 97 H 20 137/75 84 L 05/24/18 08:02 05/24/18 11:14 05/24/18 08:02 05/24/18 08:02 05/24/18 11:14 - Medications Medications: Current Medications Aspirin (Ecotrin) 325 mg PO DAILY [facility] Last Admin: 05/23/18 09:04 Dose: 325 mg Bisoprolol Fumarate (Zebeta) 10 mg PO DAILY [facility] Last Admin: 05/23/18 09:07 Dose: 10 mg Clopidogrel Bisulfate (Plavix) 75 mg PO DAILY [facility] Last Admin: 05/23/18 09:04 Dose: 75 mg Enoxaparin Sodium (Lovenox) 60 mg SC Q12 [facility] PRN Reason: Protocol Last Admin: 05/24/18 09:02 Dose: Not Given Furosemide (Lasix) 20 mg PO DAILY [facility] Last Admin: 05/23/18 09:07 Dose: 20 mg Hydrochlorothiazide (Microzide) 12.5 mg PO DAILY [facility] Last Admin: 05/23/18 09:07 Dose: 12.5 mg Ceftriaxone Sodium 1 gm/ (Sodium Chloride) 100 mls @ 100 mls/hr IVPB DAILY [facility] PRN Reason: Protocol Last Admin: 05/24/18 09:03 Dose: 100 mls/hr Ipratropium [place] (Atrovent) 0.5 mg IH RQ6 [facility] Last Admin: 05/24/18 07:37 Dose: 0.5 mg Levalbuterol HCl (Xopenex) 0.63 mg INH RQ6 [facility] Last Admin: 05/24/18 07:37 Dose: 0.63 mg Losartan Potassium (Cozaar) 100 mg PO DAILY [facility] Last Admin: 05/23/18 09:05 Dose: 100 mg Methylprednisolone (Solu-Medrol) 30 mg IVP Q12 [facility] Last Admin: 05/24/18 09:04 Dose: 30 mg - Labs Labs: 05/23/18 06:30 05/23/18 06:30 PT 10.9 Seconds (9.8-13.1) 05/21/18 13:34 INR 1.0 05/21/18 13:34 APTT 36.2 Seconds (25.6-37.1) 05/21/18 13:34 - Constitutional Appears: Well - Head Exam Head Exam: ATRAUMATIC, NORMAL INSPECTION, NORMOCEPHALIC - Eye Exam Eye Exam: EOMI, Normal appearance, PERRL. absent: Conjunctival injection, Nystagmus, Periorbital swelling, Periorbital tenderness, Scleral icterus Pupil Exam: NORMAL ACCOMODATION, PERRL - ENT Exam ENT Exam: Mucous Membranes Moist, Normal Exam. absent: Mucous Membranes Dry, Normal External Ear Exam, Normal Oropharynx, TM's Normal Bilaterally - Neck Exam Neck Exam: Full ROM, Normal Inspection. absent: Lymphadenopathy, Meningismus, Tenderness, Thyromegaly - Respiratory Exam Respiratory Exam: Clear to Ausculation Bilateral, Prolonged Expiratory Phase, NORMAL BREATHING PATTERN. absent: Accessory Muscle Use, Chest Wall Tenderness, Decreased Breath Sounds, Rales, Rhonchi, Wheezes, Respiratory Distress, Stridor - Cardiovascular Exam Cardiovascular Exam: REGULAR RHYTHM, +S1, +S2, Murmur. absent: Bradycardia, Tachycardia, Clicks, Diastolic murmur, Gallop, Irregular Rhythm, JVD, RRR, Rubs , +S4 - GI/Abdominal Exam GI & Abdominal Exam: Soft, Normal Bowel Sounds. absent: Bruit, Distended, Firm , Guarding, Rigid, Tenderness, Diminished Bowel Sounds, Hernia, Hyperactive Bowel Sounds, Hypoactive Bowel Sounds, Organomegaly, Pulsatile Mass, Rebound, Mass - Rectal Exam Rectal Exam: Deferred - Extremities Exam Extremities Exam: Full ROM, Normal Capillary Refill, Pedal Edema. absent: Calf Tenderness, Joint Swelling, Normal Inspection, Tenderness - Back Exam Back Exam: NORMAL INSPECTION - Neurological Exam Neurological Exam: Alert, Awake, CN II-XII Intact, Normal Gait, Oriented x3. absent: Abnormal Gait, Altered, Motor Sensory Deficit, Reflexes Normal - Psychiatric Exam Psychiatric exam: Normal Affect, Normal Mood. absent: Agitated, Anxious, Depressed, Flat Affect, Homicidal Ideation, Manic, Suicidal Ideation - Skin Skin Exam: Dry, Intact, Normal Color, Warm Assessment and Plan (1) NSTEMI (non-ST elevated myocardial infarction) Status: Acute (2) Hx of CABG Status: Chronic (3) Hx of four vessel coronary artery bypass graft Status: Chronic (4) HTN (hypertension) Status: Chronic (5) Dyslipidemia Status: Chronic (6) COPD (chronic obstructive pulmonary disease) Status: Chronic (7) History of tobacco abuse Status: Chronic (8) Prolonged Q-T interval on ECG Status: Acute - Assessment and Plan (Free Text) Plan: PT FOR CATH AT [facility] TOMORROW AFTERNOON NO AM LOVENOX PT MAY HAVE BREAKFAST, THEN NPO THEREAFTER SHOULD RECEIVE ALL OTHER PO MEDS IN AM PROCEDURE EXPLAINED AT LENGTH. PLEASE GIVE SL NTG FOR EPISODIC CP. WILL CANCEL ECHO AND EVAL ONCE TRANSFERRED FOR CATH. 65 MIN TOTAL CARE TIME.
[2018-05-24] MEDS: Aspirin 325 mg EC Tablets PO SCH (15:25)
[2018-05-24] MEDS ORDERED: Levalbuterol 0.63 MG/3 ML Inhal Soln UD INH PRN (19:19)
[2018-05-25 05:51] LABS: PROTHROMBIN TIME 10.9 Seconds (9.8-13.1)
[2018-05-25 05:55] LABS: HEMOGLOBIN 13.8 g/dL (12.0-16.0); MEAN CELL VOLUME 89.8 fl (81.0-99.0); MEAN CORPUSCULAR HEMOGLOBIN 29.1 pg (27.0-31.0); MEAN CORPUSCULAR HGB CONC 32.4 g/dL (33.0-37.0); RBC 4.75 Mil/uL (3.80-5.20); WHITE BLOOD COUNT 5.8 K/uL (4.8-10.8)
[2018-05-25 06:07] LABS: B-TYPE NATRIURETIC PEPTIDE 13500 pg/ml (0-900)
[2018-05-25 06:14] LABS: ALB/GLOB RATIO 1.3 (1.0-2.1); ALBUMIN 3.3 g/dL (3.5-5.0); ALT/SGPT 30 U/L (9-52); AST/SGOT 32 U/L (14-36); BLOOD UREA NITROGEN 22 mg/dl (7-17); CALCIUM 9.3 mg/dL (8.4-10.2); GFR NON-AFRICAN AMERICAN > 60
[2018-05-25 06:15] LABS: FREE T4 1.45 ng/dL (0.78-2.19)
[2018-05-25 06:29] LABS: T3 0.582 nmol/L (1.49-2.60)
[2018-05-25] MEDS: Ipratropium 0.02% Inhal Soln (0.5 mg/2.5 ml) UD IH SCH ×2 (07:25→19:22)
[2018-05-25] MEDS: Aspirin 325 mg EC Tablets PO SCH (08:58)
[2018-05-25] MEDS: MethylPREDNISolone 40 mg Vial IVP SCH (08:58)
[2018-05-25] MEDS: Enoxaparin 60 mg Syringe SC SCH (09:01)
--- NOTE | 2018-05-25 09:34 | CARD ---
APPROVED REPORT Date of service: 05/24/2018 <Conclusion> Sinus rhythm with premature atrial complexes T wave abnormality, consider anterolateral ischemia Abnormal ECG
--- NOTE | 2018-05-25 16:16 | CP.PCM.PN ---
Subjective - Date & Time of Evaluation Date of Evaluation: 05/25/18 Time of Evaluation: 11:10 - Subjective Subjective: F/U NSTEMI No A/D, no SOB, no CP. Objective - Vital Signs/Intake and Output Vital Signs (last 24 hours): Temp Pulse Resp BP Pulse Ox 97.8 F 68 20 114/69 99 05/25/18 10:30 05/25/18 10:30 05/25/18 10:30 05/25/18 10:30 05/25/18 10:30 - Medications Medications: Current Medications Aspirin (Ecotrin) 325 mg PO DAILY [facility] Last Admin: 05/25/18 08:58 Dose: 325 mg Bisoprolol Fumarate (Zebeta) 10 mg PO DAILY [facility] Last Admin: 05/25/18 09:01 Dose: Not Given Clopidogrel Bisulfate (Plavix) 75 mg PO DAILY [facility] Last Admin: 05/25/18 08:57 Dose: Not Given Enoxaparin Sodium (Lovenox) 60 mg SC Q12 [facility] PRN Reason: Protocol Last Admin: 05/25/18 09:01 Dose: Not Given Furosemide (Lasix) 20 mg PO DAILY [facility] Last Admin: 05/25/18 08:59 Dose: 20 mg Hydrochlorothiazide (Microzide) 12.5 mg PO DAILY [facility] Last Admin: 05/25/18 09:01 Dose: 12.5 mg Ceftriaxone Sodium 1 gm/ (Sodium Chloride) 100 mls @ 100 mls/hr IVPB DAILY [facility] PRN Reason: Protocol Last Admin: 05/25/18 08:57 Dose: 100 mls/hr Ipratropium [place] (Atrovent) 0.5 mg IH RBID [facility] Levalbuterol HCl (Xopenex) 0.63 mg INH RQ8 [facility] PRN Reason: Shortness of Breath Losartan Potassium (Cozaar) 100 mg PO DAILY [facility] Last Admin: 05/25/18 09:00 Dose: Not Given Methylprednisolone (Solu-Medrol) 30 mg IVP Q12 [facility] Last Admin: 05/25/18 08:58 Dose: 30 mg - Labs Labs: 05/25/18 04:50 05/25/18 04:50 PT 10.9 Seconds (9.8-13.1) 05/25/18 04:50 INR 1.0 05/25/18 04:50 APTT 36.2 Seconds (25.6-37.1) 05/21/18 13:34 - Constitutional Appears: No Acute Distress - Head Exam Head Exam: NORMAL INSPECTION - Eye Exam Eye Exam: PERRL - ENT Exam ENT Exam: Normal Exam - Neck Exam Neck Exam: Normal Inspection - Respiratory Exam Respiratory Exam: Clear to Ausculation Bilateral - Cardiovascular Exam Cardiovascular Exam: REGULAR RHYTHM - GI/Abdominal Exam GI & Abdominal Exam: Soft, Normal Bowel Sounds - Extremities Exam Extremities Exam: Pedal Edema (R leg, L leg no edema, chronic skin changes distal R-L leg and feet.) - Back Exam Back Exam: NORMAL INSPECTION - Neurological Exam Neurological Exam: Alert, CN II-XII Intact Additional comments: No focal motor/sensory deficit. - Psychiatric Exam Psychiatric exam: Normal Affect - Skin Skin Exam: Warm Assessment and Plan (1) NSTEMI (non-ST elevated myocardial infarction) Status: Acute (2) Prolonged Q-T interval on ECG Status: Acute (3) Emphysema of lung Status: Chronic (4) COPD (chronic obstructive pulmonary disease) Status: Chronic (5) Hx of CABG Status: Chronic (6) 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 - Assessment and Plan (Free Text) Plan: Continue Rocephin, Xopenex, Solu-Medrol, Cozaar, ASA, lasix, Lovenox and rets of tx.
[2018-05-26] MEDS: Ipratropium 0.02% Inhal Soln (0.5 mg/2.5 ml) UD IH SCH ×2 (08:01→19:25)
--- NOTE | 2018-05-26 17:08 | CP.PCM.PN ---
Subjective - Date & Time of Evaluation Date of Evaluation: 05/26/18 Time of Evaluation: 10:00 - Subjective Subjective: F/U NSTEMI Objective - Vital Signs/Intake and Output Vital Signs (last 24 hours): Temp Pulse Resp BP Pulse Ox 97.8 F 68 20 114/69 99 05/25/18 10:30 05/25/18 10:30 05/25/18 10:30 05/25/18 10:30 05/25/18 10:30 - Medications Medications: Current Medications Aspirin (Ecotrin) 325 mg PO DAILY [facility] Last Admin: 05/25/18 08:58 Dose: 325 mg Bisoprolol Fumarate (Zebeta) 10 mg PO DAILY [facility] Last Admin: 05/25/18 09:01 Dose: Not Given Clopidogrel Bisulfate (Plavix) 75 mg PO DAILY [facility] Last Admin: 05/25/18 08:57 Dose: Not Given Enoxaparin Sodium (Lovenox) 60 mg SC Q12 [facility] PRN Reason: Protocol Last Admin: 05/25/18 09:01 Dose: Not Given Furosemide (Lasix) 20 mg PO DAILY [facility] Last Admin: 05/25/18 08:59 Dose: 20 mg Hydrochlorothiazide (Microzide) 12.5 mg PO DAILY [facility] Last Admin: 05/25/18 09:01 Dose: 12.5 mg Ceftriaxone Sodium 1 gm/ (Sodium Chloride) 100 mls @ 100 mls/hr IVPB DAILY [facility] PRN Reason: Protocol Last Admin: 05/25/18 08:57 Dose: 100 mls/hr Ipratropium [place] (Atrovent) 0.5 mg IH RBID [facility] Last Admin: 05/26/18 08:01 Dose: Not Given Levalbuterol HCl (Xopenex) 0.63 mg INH RQ8 PRN PRN Reason: Shortness of Breath Losartan Potassium (Cozaar) 100 mg PO DAILY [facility] Last Admin: 05/25/18 09:00 Dose: Not Given Methylprednisolone (Solu-Medrol) 30 mg IVP Q12 [facility] Last Admin: 05/25/18 08:58 Dose: 30 mg - Labs Labs: 05/25/18 04:50 05/25/18 04:50 PT 10.9 Seconds (9.8-13.1) 05/25/18 04:50 INR 1.0 05/25/18 04:50 APTT 36.2 Seconds (25.6-37.1) 05/21/18 13:34 - Constitutional Appears: No Acute Distress - Head Exam Head Exam: NORMAL INSPECTION - Eye Exam Eye Exam: PERRL - ENT Exam ENT Exam: Normal Exam - Neck Exam Neck Exam: Normal Inspection - Respiratory Exam Respiratory Exam: Clear to Ausculation Bilateral - Cardiovascular Exam Cardiovascular Exam: REGULAR RHYTHM - GI/Abdominal Exam GI & Abdominal Exam: Soft, Normal Bowel Sounds - Extremities Exam Extremities Exam: Pedal Edema (R leg) - Back Exam Back Exam: NORMAL INSPECTION - Neurological Exam Neurological Exam: Alert, CN II-XII Intact Additional comments: No focal motor/sensory deficit. 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
--- NOTE | 2018-05-26 17:35 | CP.CCUPN ---
CCU Subjective - Physician Review Subjective (Free Text): 87 y/o F transferred back from [facility] post left heart cath and found to have multi vessel disease, no intervention performed, now in ICU due to episode of VT VF during cath, on fixed dose Amiodarone drip at 0.5mg dose. Awake and alert , was noted to be sitting up OOB in chair prior to transfer back to [facility] on Amiodarone drip. Currently, awake, alert and in pleasant mood, not distressed, and denies any new symptoms. Other vitals and I/O's reviewed: Afebrile, HR 68, 114/70, RR 20, 99% SPo2 on nasal oxygen. ROS: No other pertinent negs or positives on 10+ system review obtainable from patient due to poorly responsive state. PMSFH: All other Nursing and physician documentation reviewed to date; no new pertinent info noted relevant to current medical problems. Allergies: NKDA Home Meds: ProAir, ASA, Zebeta, Plavix, Lasix, Losartan/ HCTZ EXAM- HEENT: no icterus, no gaze preference NECK: No JVD visible, supple, carotids equal upstroke bilat CHEST: decreased BS bases, no wheezes audible HEART: egular, distant, S1S2, no rubs / murmurs ABD: soft, no increased distention, no tympany, no focal tenderness, BS hypoactive EXT: no peripheral/ digital cyanosis, no calf tenderness or palpable cords, distal pulses intact and symmetrical. NEURO: no gross focal deficits SKIN: no rashes, otherwise warm and dry. LABS: WBC= 5.8 HGB= 13.8 PLTs= 323K 7.26/50/132 Mm=689 K= 4.5 CL= 92 HCO3= 34 BUN/Cr= 22/0.6 BS= 119 CXR: clear, no gross consolidation, no congestion (my interp). EK/27 study- sinus with PAC, 66/min, Inverted T 1, L, V2-6 ( my interp) IMPRESSION / MAJOR PROBLEMS NOW: 1. ACS with h/o CAD / CABG 2. VT/ VF 3. h/o COPD / Emphysema on home O2. PLAN: 1. IV Amiodarone infusion as per Cardiology. 2. Repeat E12 lead EKG 3. Ongoing ASA, Plavix, Lovenox, ARB 4. Could wean IV steroids a bit, no bronchospasm now. 5. Stable for Telemetry monitoring on fixed dose Amiodarone infusion. 05/26/18 17:34
[2018-05-26] MEDS: Aspirin 325 mg EC Tablets PO SCH (17:36)
[2018-05-26] MEDS: Enoxaparin 60 mg Syringe SC SCH ×2 (17:37→22:01)
[2018-05-26] MEDS: MethylPREDNISolone 40 mg Vial IVP SCH ×2 (19:07→22:02)
[2018-05-26] MEDS: Amiodarone 450 MG in Sodium Chloride 0.9% 250 ML IV SCH (22:00)
[2018-05-27 05:30] LABS: HEMOGLOBIN 12.6 g/dL (12.0-16.0); MEAN CELL VOLUME 88.8 fl (81.0-99.0); MEAN CORPUSCULAR HEMOGLOBIN 29.2 pg (27.0-31.0); MEAN CORPUSCULAR HGB CONC 32.9 g/dL (33.0-37.0); RBC 4.32 Mil/uL (3.80-5.20); RED CELL DISTRIBUTION WIDTH 13.8 % (11.5-14.5); WHITE BLOOD COUNT 5.8 K/uL (4.8-10.8)
[2018-05-27 06:00] LABS: BLOOD UREA NITROGEN 15 mg/dl (7-17); GFR NON-AFRICAN AMERICAN > 60
[2018-05-27 06:01] LABS: CALCIUM 8.9 mg/dL (8.4-10.2)
[2018-05-27] MEDS: Ipratropium 0.02% Inhal Soln (0.5 mg/2.5 ml) UD IH SCH ×2 (07:46→19:07)
[2018-05-27] MEDS: Aspirin 325 mg EC Tablets PO SCH (08:19)
[2018-05-27] MEDS: MethylPREDNISolone 40 mg Vial IVP SCH (08:20)
[2018-05-27] MEDS: Enoxaparin 60 mg Syringe SC SCH ×2 (08:20→21:29)
[2018-05-27] MEDS: Amiodarone 450 MG in Sodium Chloride 0.9% 250 ML IV SCH (13:58)
--- NOTE | 2018-05-27 17:31 | CP.PCM.PN ---
Subjective - Date & Time of Evaluation Date of Evaluation: 05/27/18 Time of Evaluation: 12:20 - Subjective Subjective: F/U NSTEMI Objective - Vital Signs/Intake and Output Vital Signs (last 24 hours): Temp Pulse Resp BP Pulse Ox 98.1 F 69 18 108/59 L 95 05/27/18 16:00 05/27/18 16:00 05/27/18 16:00 05/27/18 12:22 05/27/18 16:00 Intake and Output: 05/27/18 05/27/18 06:59 18:59 Intake Total 208 259 Balance 208 259 - Medications Medications: Current Medications Aspirin (Ecotrin) 325 mg PO DAILY [facility] Last Admin: 05/27/18 08:19 Dose: 325 mg Bisoprolol Fumarate (Zebeta) 10 mg PO DAILY [facility] Last Admin: 05/27/18 08:21 Dose: 10 mg Clopidogrel Bisulfate (Plavix) 75 mg PO DAILY [facility] Last Admin: 05/27/18 08:20 Dose: 75 mg Enoxaparin Sodium (Lovenox) 60 mg SC Q12 [facility] PRN Reason: Protocol Last Admin: 05/27/18 08:20 Dose: 60 mg Furosemide (Lasix) 20 mg PO DAILY [facility] Last Admin: 05/27/18 08:19 Dose: 20 mg Hydrochlorothiazide (Microzide) 12.5 mg PO DAILY [facility] Last Admin: 05/27/18 08:20 Dose: 12.5 mg Amiodarone HCl 450 mg/ Sodium (Chloride) 259 mls @ 17.26 mls/hr IV .Q15H1M [facility] ; 0.5 MG/MIN PRN Reason: Protocol Last Admin: 05/27/18 13:58 Dose: 0.5 mg/min, 17.26 mls/hr Ipratropium [place] (Atrovent) 0.5 mg IH RBID [facility] Last Admin: 05/27/18 07:46 Dose: 0.5 mg Levalbuterol HCl (Xopenex) 0.63 mg INH RQ8 PRN PRN Reason: Shortness of Breath Losartan Potassium (Cozaar) 100 mg PO DAILY [facility] Last Admin: 05/27/18 08:23 Dose: Not Given Methylprednisolone (Solu-Medrol) 30 mg IVP DAILY [facility] - Labs Labs: 05/27/18 04:30 05/27/18 04:30 PT 10.9 Seconds (9.8-13.1) 05/25/18 04:50 INR 1.0 05/25/18 04:50 APTT 36.2 Seconds (25.6-37.1) 05/21/18 13:34 - Constitutional Appears: No Acute Distress - Head Exam Head Exam: NORMAL INSPECTION - Eye Exam Eye Exam: PERRL - ENT Exam ENT Exam: Normal Exam - Neck Exam Neck Exam: Normal Inspection - Respiratory Exam Respiratory Exam: Clear to Ausculation Bilateral - Cardiovascular Exam Cardiovascular Exam: REGULAR RHYTHM - GI/Abdominal Exam GI & Abdominal Exam: Soft, Normal Bowel Sounds - Extremities Exam Extremities Exam: Pedal Edema (R leg) Additional comments: Chronic skin changes distal R-L leg and feet - Back Exam Back Exam: NORMAL INSPECTION - Neurological Exam Neurological Exam: Alert, CN II-XII Intact Additional comments: No focal motor/sensory deficit. 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
--- NOTE | 2018-05-27 19:06 | CARD ---
APPROVED REPORT Date of service: 05/27/2018 <Conclusion> Normal sinus rhythm T wave abnormality, consider anterolateral ischemia Prolonged QT Abnormal ECG
--- NOTE | 2018-05-27 19:32 | CP.PCM.PN ---
Subjective - Date & Time of Evaluation Date of Evaluation: 05/27/18 Time of Evaluation: 18:45 - Subjective Subjective: discussed with patient's nurse. will change amidoarone to 200 mg daily. family expresses concern about patinet being home alone. SW to look for possible rehab options. Objective - Vital Signs/Intake and Output Vital Signs (last 24 hours): Temp Pulse Resp BP Pulse Ox 98.1 F 69 18 111/58 L 95 05/27/18 16:00 05/27/18 16:00 05/27/18 16:00 05/27/18 16:00 05/27/18 16:00 Intake and Output: 05/27/18 05/28/18 18:59 06:59 Intake Total 791 Balance 791 - Medications Medications: Current Medications Amiodarone HCl (Cordarone) 200 mg PO DAILY [facility] Aspirin (Ecotrin) 325 mg PO DAILY [facility] Last Admin: 05/27/18 08:19 Dose: 325 mg Bisoprolol Fumarate (Zebeta) 10 mg PO DAILY [facility] Last Admin: 05/27/18 08:21 Dose: 10 mg Clopidogrel Bisulfate (Plavix) 75 mg PO DAILY [facility] Last Admin: 05/27/18 08:20 Dose: 75 mg Enoxaparin Sodium (Lovenox) 60 mg SC Q12 [facility] PRN Reason: Protocol Last Admin: 05/27/18 08:20 Dose: 60 mg Furosemide (Lasix) 20 mg PO DAILY [facility] Last Admin: 05/27/18 08:19 Dose: 20 mg Hydrochlorothiazide (Microzide) 12.5 mg PO DAILY [facility] Last Admin: 05/27/18 08:20 Dose: 12.5 mg Ipratropium [place] (Atrovent) 0.5 mg IH RBID [facility] Last Admin: 05/27/18 19:07 Dose: 0.5 mg Levalbuterol HCl (Xopenex) 0.63 mg INH RQ8 PRN PRN Reason: Shortness of Breath Losartan Potassium (Cozaar) 100 mg PO DAILY [facility] Last Admin: 05/27/18 08:23 Dose: Not Given Methylprednisolone (Solu-Medrol) 30 mg IVP DAILY [facility] - Labs Labs: 05/27/18 04:30 05/27/18 04:30 PT 10.9 Seconds (9.8-13.1) 05/25/18 04:50 INR 1.0 05/25/18 04:50 APTT 36.2 Seconds (25.6-37.1) 05/21/18 13:34
[2018-05-28] MEDS: Ipratropium 0.02% Inhal Soln (0.5 mg/2.5 ml) UD IH SCH ×2 (07:21→19:27)
[2018-05-28] MEDS: Aspirin 325 mg EC Tablets PO SCH (09:13)
[2018-05-28] MEDS: MethylPREDNISolone 40 mg Vial IVP SCH (09:14)
[2018-05-28] MEDS: Enoxaparin 60 mg Syringe SC SCH ×2 (09:15→21:10)
--- NOTE | 2018-05-28 15:27 | CP.PCM.PN ---
Objective - Vital Signs/Intake and Output Vital Signs (last 24 hours): Temp Pulse Resp BP Pulse Ox 97.9 F 69 18 103/58 L 99 05/28/18 12:08 05/28/18 12:41 05/28/18 12:08 05/28/18 12:41 05/28/18 12:08 - Medications Medications: Current Medications Amiodarone HCl (Cordarone) 200 mg PO DAILY [facility] Last Admin: 05/28/18 09:12 Dose: 200 mg Aspirin (Ecotrin) 325 mg PO DAILY [facility] Last Admin: 05/28/18 09:13 Dose: 325 mg Bisoprolol Fumarate (Zebeta) 10 mg PO DAILY [facility] Last Admin: 05/28/18 12:41 Dose: 10 mg Clopidogrel Bisulfate (Plavix) 75 mg PO DAILY [facility] Last Admin: 05/28/18 09:14 Dose: 75 mg Enoxaparin Sodium (Lovenox) 60 mg SC Q12 [facility] PRN Reason: Protocol Last Admin: 05/28/18 09:15 Dose: 60 mg Furosemide (Lasix) 20 mg PO DAILY [facility] Last Admin: 05/28/18 09:13 Dose: 20 mg Hydrochlorothiazide (Microzide) 12.5 mg PO DAILY [facility] Last Admin: 05/28/18 09:14 Dose: 12.5 mg Ipratropium [place] (Atrovent) 0.5 mg IH RBID [facility] Last Admin: 05/28/18 07:21 Dose: 0.5 mg Levalbuterol HCl (Xopenex) 0.63 mg INH RQ8 PRN PRN Reason: Shortness of Breath Losartan Potassium (Cozaar) 100 mg PO DAILY [facility] Last Admin: 05/28/18 12:41 Dose: 100 mg Methylprednisolone (Solu-Medrol) 30 mg IVP DAILY [facility] Last Admin: 05/28/18 09:14 Dose: 30 mg - Labs Labs: 05/27/18 04:30 05/27/18 04:30 PT 10.9 Seconds (9.8-13.1) 05/25/18 04:50 INR 1.0 05/25/18 04:50 APTT 36.2 Seconds (25.6-37.1) 05/21/18 13:34 Assessment and Plan (1) NSTEMI (non-ST elevated myocardial infarction) Status: Acute (2) Prolonged Q-T interval on ECG Status: Acute (3) Emphysema of lung Status: Chronic (4) COPD (chronic obstructive pulmonary disease) Status: Chronic (5) Hx of CABG Status: Chronic (6) 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
[2018-05-29] MEDS: Ipratropium 0.02% Inhal Soln (0.5 mg/2.5 ml) UD IH SCH ×2 (07:52→19:57)
[2018-05-29 10:42] LABS: BASO % 0.1 % (0.0-2.0); EOS # 0.1 K/uL (0.0-0.7); EOS % 0.5 % (0.0-4.0); LYMPH # 1.1 K/uL (1.0-4.3); LYMPH % 10.7 % (20.0-40.0); MEAN CORPUSCULAR HEMOGLOBIN 30.1 pg (27.0-31.0); MEAN CORPUSCULAR HGB CONC 33.9 g/dL (33.0-37.0); MEAN PLATELET VOLUME 8.8 fl (7.2-11.7); MONO # 1.4 K/uL (0.0-0.8); MONO % 13.3 % (0.0-10.0); NEUT # 7.7 K/uL (1.8-7.0); NEUT % 75.4 % (50.0-75.0); NRBC % 0.1 % (0.0-0.0); RBC 3.16 Mil/uL (3.80-5.20); RED CELL DISTRIBUTION WIDTH 13.7 % (11.5-14.5); WHITE BLOOD COUNT 10.2 K/uL (4.8-10.8)
--- NOTE | 2018-05-29 10:51 | CP.PCM.PN ---
Subjective - Date & Time of Evaluation Date of Evaluation: 05/29/18 Time of Evaluation: 10:20 - Subjective Subjective: F/U NSTEMI no AD , smiling , no SOB , no C/P Objective - Vital Signs/Intake and Output Vital Signs (last 24 hours): Temp Pulse Resp BP Pulse Ox 98 F 66 20 103/50 L 96 05/29/18 08:33 05/29/18 08:33 05/29/18 08:33 05/29/18 08:33 05/29/18 08:33 - Medications Medications: Current Medications Amiodarone HCl (Cordarone) 200 mg PO DAILY [facility] Last Admin: 05/28/18 09:12 Dose: 200 mg Aspirin (Ecotrin) 325 mg PO DAILY [facility] Last Admin: 05/28/18 09:13 Dose: 325 mg Bisoprolol Fumarate (Zebeta) 10 mg PO DAILY [facility] Last Admin: 05/28/18 12:41 Dose: 10 mg Clopidogrel Bisulfate (Plavix) 75 mg PO DAILY [facility] Last Admin: 05/28/18 09:14 Dose: 75 mg Enoxaparin Sodium (Lovenox) 60 mg SC Q12 [facility] PRN Reason: Protocol Last Admin: 05/28/18 21:10 Dose: 60 mg Furosemide (Lasix) 20 mg PO DAILY [facility] Last Admin: 05/28/18 09:13 Dose: 20 mg Hydrochlorothiazide (Microzide) 12.5 mg PO DAILY [facility] Last Admin: 05/28/18 09:14 Dose: 12.5 mg Ipratropium [place] (Atrovent) 0.5 mg IH RBID [facility] Last Admin: 05/29/18 07:52 Dose: 0.5 mg Levalbuterol HCl (Xopenex) 0.63 mg INH RQ8 PRN PRN Reason: Shortness of Breath Last Admin: 05/28/18 19:27 Dose: 0.63 mg Losartan Potassium (Cozaar) 100 mg PO DAILY [facility] Last Admin: 05/28/18 12:41 Dose: 100 mg Methylprednisolone (Solu-Medrol) 30 mg IVP DAILY [facility] Last Admin: 05/28/18 09:14 Dose: 30 mg - Labs Labs: 05/27/18 04:30 05/27/18 04:30 PT 10.9 Seconds (9.8-13.1) 05/25/18 04:50 INR 1.0 05/25/18 04:50 APTT 36.2 Seconds (25.6-37.1) 05/21/18 13:34 - Constitutional Appears: No Acute Distress - Head Exam Head Exam: NORMAL INSPECTION - Eye Exam Eye Exam: PERRL - ENT Exam ENT Exam: Normal Exam - Neck Exam Neck Exam: Normal Inspection - Respiratory Exam Respiratory Exam: Clear to Ausculation Bilateral - Cardiovascular Exam Cardiovascular Exam: REGULAR RHYTHM - GI/Abdominal Exam GI & Abdominal Exam: Soft, Normal Bowel Sounds Additional comments: R inguinal , no tenderness, no bleeding - Extremities Exam Extremities Exam: Pedal Edema (R leg) Additional comments: R groin area , bleeding, dressing pressure applied, Chronic skin changes distal R-L legs and feet , ecchymosis U/E - Back Exam Back Exam: NORMAL INSPECTION - Neurological Exam Neurological Exam: Alert, CN II-XII Intact Additional comments: No focal motor/sensory deficit. 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
[2018-05-29 10:59] LABS: BLOOD UREA NITROGEN 24 mg/dl (7-17); CALCIUM 8.7 mg/dL (8.4-10.2); GFR NON-AFRICAN AMERICAN > 60
[2018-05-29 11:04] LABS: HEMOGLOBIN 9.5 g/dL (12.0-16.0)
[2018-05-29 11:09] LABS: PROTHROMBIN TIME 10.9 Seconds (9.8-13.1)
[2018-05-29 11:12] LABS: PARTIAL THROMBOPLASTIN TIME 31.9 Seconds (25.6-37.1)
[2018-05-29] MEDS: Enoxaparin 60 mg Syringe SC SCH (12:02)
[2018-05-29] MEDS: Aspirin 325 mg EC Tablets PO SCH (12:02)
[2018-05-29] MEDS: MethylPREDNISolone 40 mg Vial IVP SCH (12:05)
--- NOTE | 2018-05-29 14:43 | CP.PCM.PN ---
Subjective - Date & Time of Evaluation Date of Evaluation: 05/29/18 Time of Evaluation: 17:13 - Subjective Subjective: PT WITHOUT COMPLAINTS, DENIES CP, SOB, ABD PAIN, BACK PAIN, RIGHT GROIN PAIN, MELENA, BRBPR, HEMATOCHEZIA, HEMOPTYSIS. LABS SHOW 3GM HB DROP, CONTRACTION ALKALOSIS AND HYPOKALEMIA. PT UPSET THAT HER D/C WAS CANCELED Objective - Vital Signs/Intake and Output Vital Signs (last 24 hours): Temp Pulse Resp BP Pulse Ox 98 F 76 20 109/59 L 98 05/29/18 13:16 05/29/18 13:16 05/29/18 13:16 05/29/18 13:16 05/29/18 13:16 - Medications Medications: Current Medications Acetazolamide (Diamox 250 Mg Tab) 250 mg PO BID [facility] Amiodarone HCl (Cordarone) 200 mg PO DAILY [facility] Last Admin: 05/29/18 12:01 Dose: 200 mg Aspirin (Aspirin Chewable) 81 mg PO DAILY [facility] Bisoprolol Fumarate (Zebeta) 10 mg PO DAILY [facility] Last Admin: 05/29/18 12:06 Dose: 10 mg Clopidogrel Bisulfate (Plavix) 75 mg PO DAILY [facility] Last Admin: 05/29/18 12:04 Dose: 75 mg Furosemide (Lasix) 20 mg PO DAILY [facility] Last Admin: 05/29/18 12:02 Dose: 20 mg Sodium Chloride (Sodium Chloride 0.9%) 1,000 mls @ 60 mls/hr IV .[id number] [facility] Stop: 05/30/18 14:37 Ipratropium [place] (Atrovent) 0.5 mg IH RBID [facility] Last Admin: 05/29/18 07:52 Dose: 0.5 mg Levalbuterol HCl (Xopenex) 0.63 mg INH RQ8 PRN PRN Reason: Shortness of Breath Last Admin: 05/28/18 19:27 Dose: 0.63 mg Losartan Potassium (Cozaar) 100 mg PO DAILY [facility] Last Admin: 05/29/18 12:01 Dose: 100 mg Methylprednisolone (Solu-Medrol) 30 mg IVP DAILY [facility] Last Admin: 05/29/18 12:05 Dose: 30 mg - Labs Labs: 05/29/18 10:30 05/29/18 10:30 PT 10.9 Seconds (9.8-13.1) 05/29/18 10:30 INR 1.0 05/29/18 10:30 APTT 31.9 Seconds (25.6-37.1) 05/29/18 10:30 - Constitutional Appears: Non-toxic - Head Exam Head Exam: ATRAUMATIC, NORMAL INSPECTION, NORMOCEPHALIC - Eye Exam Eye Exam: EOMI, Normal appearance, PERRL. absent: Conjunctival injection, Nystagmus, Periorbital swelling, Periorbital tenderness, Scleral icterus - ENT Exam ENT Exam: Mucous Membranes Moist, Normal Exam. absent: Mucous Membranes Dry, Normal External Ear Exam, Normal Oropharynx, TM's Normal Bilaterally - Neck Exam Neck Exam: Full ROM. absent: Lymphadenopathy, Meningismus, Normal Inspection, Tenderness, Thyromegaly - Respiratory Exam Respiratory Exam: Clear to Ausculation Bilateral, NORMAL BREATHING PATTERN. absent: Accessory Muscle Use, Chest Wall Tenderness, Decreased Breath Sounds, Prolonged Expiratory Phase, Rales, Rhonchi, Wheezes, Respiratory Distress, Stridor - Cardiovascular Exam Cardiovascular Exam: REGULAR RHYTHM, +S1, +S2, Murmur. absent: Bradycardia, Tachycardia, Clicks, Diastolic murmur, Gallop, Irregular Rhythm, JVD, RRR, Rubs , +S4 - GI/Abdominal Exam GI & Abdominal Exam: Soft, Normal Bowel Sounds. absent: Bruit, Distended, Firm , Guarding, Rigid, Tenderness, Diminished Bowel Sounds, Hernia, Hyperactive Bowel Sounds, Hypoactive Bowel Sounds, Organomegaly, Pulsatile Mass, Rebound, Mass Additional comments: RIGHT GROIN OLD HEMATOMA. LEFT FLANK ECCHYMOSIS. NO SIG ABD, FLANK OR GROIN TENDERNESS. NO BRUITS OR PULSATILE MASSES. - Rectal Exam Rectal Exam: Deferred - Extremities Exam Extremities Exam: Full ROM, Normal Capillary Refill, Normal Inspection. absent : Calf Tenderness, Joint Swelling, Pedal Edema, Tenderness - Back Exam Back Exam: NORMAL INSPECTION. absent: CVA tenderness (L), CVA tenderness (R), Full ROM, muscle spasm, paraspinal tenderness, rash noted, tenderness, vertebral tenderness - Neurological Exam Neurological Exam: Alert, Awake, CN II-XII Intact, Normal Gait, Oriented x3. absent: Abnormal Gait, Altered, Motor Sensory Deficit, Reflexes Normal - Psychiatric Exam Psychiatric exam: Anxious. absent: Agitated, Depressed, Flat Affect, Homicidal Ideation, Manic, Normal Affect, Normal Mood, Suicidal Ideation - Skin Skin Exam: Dry, Intact, Normal Color, Warm. absent: Abrasion, Cyanosis, Diaphoretic, Erythema, Mottled, Pallor, Pallor, Petechiae, Rash, Urticaria, Vesicles Assessment and Plan (1) Anemia due to acute blood loss Assessment & Plan: HB DROPPED 3GM. RIGHT GROIN HEMATOMA APPEARS OLD. NO FLANK TENDERNESS. ORDERS PLACED AND STILL PENDING. REPEAT EKG AND LABS CT A/P US OF R FEMORAL TYPE AND SCREEN IVF GENTLE REPLEAT K AND MAG STOP LOVENOX, AND HCTZ DECREASE ASA DOSE MONITOR BP AND HR CLOSELY. SHOULD CONSIDER TREATING ANXIETY PRN. IF PT COUGHING THEN SHOULD CONSIDER COUGH SUPPRESSANT. 105 TOTAL MIN CARE TIME. 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
[2018-05-29] MEDS ORDERED: Sodium Chloride 0.9% 1,000 ML IV SCH ×2 (14:45→19:00)
[2018-05-29] MEDS ORDERED: Potassium Chloride 20 mEq/15 ml LIQ UD PO ONE (17:41)
[2018-05-29 18:08] LABS: HEMOGLOBIN 9.8 g/dL (12.0-16.0); MEAN CORPUSCULAR HEMOGLOBIN 29.2 pg (27.0-31.0); MEAN CORPUSCULAR HGB CONC 32.8 g/dL (33.0-37.0); RBC 3.37 Mil/uL (3.80-5.20); RED CELL DISTRIBUTION WIDTH 14.1 % (11.5-14.5); WHITE BLOOD COUNT 14.1 K/uL (4.8-10.8)
[2018-05-29 18:23] LABS: ALB/GLOB RATIO 1.5 (1.0-2.1); ALBUMIN 3.5 g/dL (3.5-5.0); ALT/SGPT 23 U/L (9-52); AST/SGOT 20 U/L (14-36); BLOOD UREA NITROGEN 32 mg/dl (7-17); CALCIUM 8.8 mg/dL (8.4-10.2); GFR NON-AFRICAN AMERICAN > 60
[2018-05-30 07:01] LABS: HEMOGLOBIN 8.8 g/dL (12.0-16.0); LYMPH # 0.6 K/uL (1.0-4.3); MEAN CELL VOLUME 89.9 fl (81.0-99.0); MEAN CORPUSCULAR HEMOGLOBIN 29.8 pg (27.0-31.0); MEAN CORPUSCULAR HGB CONC 33.1 g/dL (33.0-37.0); MEAN PLATELET VOLUME 9.3 fl (7.2-11.7); MONO # 0.8 K/uL (0.0-0.8); MONO % 11.3 % (0.0-10.0); NEUT # 5.8 K/uL (1.8-7.0); NEUT % 80.7 % (50.0-75.0); PLATELET COUNT 252 K/uL (130-400); RBC 2.95 Mil/uL (3.80-5.20); RED CELL DISTRIBUTION WIDTH 13.8 % (11.5-14.5); WHITE BLOOD COUNT 7.2 K/uL (4.8-10.8)
[2018-05-30 07:12] LABS: BLOOD UREA NITROGEN 24 mg/dl (7-17); CALCIUM 8.8 mg/dL (8.4-10.2); GFR NON-AFRICAN AMERICAN > 60
[2018-05-30] MEDS: Ipratropium 0.02% Inhal Soln (0.5 mg/2.5 ml) UD IH SCH ×2 (07:34→19:17)
--- NOTE | 2018-05-30 08:34 | CT ---
Date of service: 05/29/2018 PROCEDURE: CT Abdomen and Pelvis without intravenous contrast HISTORY: retroperitoneal bleed eval COMPARISON: None. TECHNIQUE: Technique. Contrast dose: Radiation dose: Total exam DLP = mGy-cm. This CT exam was performed using one or more of the following dose reduction techniques: Automated exposure control, adjustment of the mA and/or kV according to patient size, and/or use of iterative reconstruction technique. FINDINGS: LOWER THORAX: Unremarkable. LIVER: Unremarkable. No gross lesion or ductal dilatation. GALLBLADDER AND BILE DUCTS: Cholelithiasis . PANCREAS: Unremarkable. No gross lesion or ductal dilatation. SPLEEN: Unremarkable. ADRENALS: Unremarkable. No mass. KIDNEYS AND URETERS: Unremarkable. No hydronephrosis. No solid mass. VASCULATURE: Unremarkable. No aortic aneurysm. BOWEL: Unremarkable. No obstruction. No gross mural thickening. APPENDIX: Unremarkable. Normal appendix. PERITONEUM: Unremarkable. No free fluid. No free air. LYMPH NODES: Unremarkable. No enlarged lymph nodes. BLADDER: Unremarkable. REPRODUCTIVE: Unremarkable. BONES: No acute fracture. OTHER FINDINGS: Subcutaneous edema with a small right-sided retroperitoneal hematoma in the abdomen and upper pelvis lateral to the right psoas muscle and anterior to the iliacus muscle with the largest portion of the hematoma in the right lower quadrant measuring 7.2 x 2.7 x 9.0 centimeters. IMPRESSION: Subcutaneous edema with a small right-sided retroperitoneal hematoma in the abdomen and upper pelvis lateral to the right psoas muscle and anterior to the iliacus muscle with the largest portion of the hematoma in the right lower quadrant measuring 7.2 x 2.7 x 9.0 centimeters. Cholelithiasis.
[2018-05-30] MEDS: MethylPREDNISolone 40 mg Vial IVP SCH (08:52)
[2018-05-30] MEDS ORDERED: Enoxaparin 40 mg Syringe SC SCH (09:00)
[2018-05-30 10:36] LABS: LYMPHOCYTE 6 % (20-50); MONOCYTE 7 % (0-10); NEUTROPHIL 87 % (42-75); PLATELET ESTIMATE NORMAL (NORMAL); TOTAL CELLS COUNTED 100
[2018-05-30 10:37] LABS: HYPOCHROMIC MODERATE; TOXIC GRANULATION PRESENT
[2018-05-30] MEDS ORDERED: Sodium Chloride 0.9% 1,000 ML IV SCH (12:30)
--- NOTE | 2018-05-30 12:32 | CP.PCM.PN ---
Subjective - Subjective Subjective: no AD , smiling, no SOB , no C/P, no hematuria, no melena, no rectal bleeding Objective - Vital Signs/Intake and Output Vital Signs (last 24 hours): Temp Pulse Resp BP Pulse Ox 97.5 F L 47 L 20 105/56 L 100 05/30/18 08:20 05/30/18 09:00 05/30/18 08:20 05/30/18 08:20 05/30/18 08:20 - Medications Medications: Current Medications Acetazolamide (Diamox 250 Mg Tab) 250 mg PO BID [facility] Last Admin: 05/30/18 08:55 Dose: 250 mg Amiodarone HCl (Cordarone) 200 mg PO DAILY [facility] Last Admin: 05/30/18 08:53 Dose: 200 mg Aspirin (Aspirin Chewable) 81 mg PO DAILY [facility] Last Admin: 05/30/18 08:54 Dose: 81 mg Bisoprolol Fumarate (Zebeta) 10 mg PO DAILY [facility] Last Admin: 05/30/18 08:52 Dose: Not Given Clopidogrel Bisulfate (Plavix) 75 mg PO DAILY [facility] Last Admin: 05/30/18 08:52 Dose: 75 mg Sodium Chloride (Sodium Chloride 0.9%) 1,000 mls @ 40 mls/hr IV .Q24H [facility] Stop: 05/31/18 12:21 Ipratropium [place] (Atrovent) 0.5 mg IH RBID [facility] Last Admin: 05/30/18 07:34 Dose: 0.5 mg Levalbuterol HCl (Xopenex) 0.63 mg INH RQ8 PRN PRN Reason: Shortness of Breath Last Admin: 05/28/18 19:27 Dose: 0.63 mg Losartan Potassium (Cozaar) 100 mg PO DAILY [facility] Last Admin: 05/29/18 12:01 Dose: 100 mg Methylprednisolone (Solu-Medrol) 30 mg IVP DAILY [facility] Last Admin: 05/30/18 08:52 Dose: 30 mg - Labs Labs: 05/30/18 05:00 05/30/18 05:00 PT 10.9 Seconds (9.8-13.1) 05/29/18 10:30 INR 1.0 05/29/18 10:30 APTT 31.9 Seconds (25.6-37.1) 05/29/18 10:30 - Constitutional Appears: No Acute Distress - Head Exam Head Exam: NORMOCEPHALIC - Eye Exam Eye Exam: Normal appearance - ENT Exam ENT Exam: Normal Exam - Neck Exam Neck Exam: Normal Inspection - Respiratory Exam Respiratory Exam: Decreased Breath Sounds (at bases) - Cardiovascular Exam Cardiovascular Exam: REGULAR RHYTHM - GI/Abdominal Exam GI & Abdominal Exam: Soft, Normal Bowel Sounds Additional comments: R inguinal ecchymosis ,no bleeding, no tenderness - Extremities Exam Additional comments: chronic skin changes R L leg , ecchymosis U.E, - Neurological Exam Neurological Exam: Alert, CN II-XII Intact Additional comments: no focal motor/sensory deficit, generalized weakness - Psychiatric Exam Psychiatric exam: Normal Affect, Normal Mood - Skin Skin Exam: Warm Assessment and Plan (1) NSTEMI (non-ST elevated myocardial infarction) Status: Acute (2) Prolonged Q-T interval on ECG Status: Acute (3) Emphysema of lung Status: Chronic (4) COPD (chronic obstructive pulmonary disease) Status: Chronic (5) Hx of CABG Status: Chronic (6) 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
[2018-05-30 16:15] LABS: INR 0.9
[2018-05-30 16:17] LABS: BLOOD UREA NITROGEN 26 mg/dl (7-17); CALCIUM 8.8 mg/dL (8.4-10.2); GFR NON-AFRICAN AMERICAN 52
[2018-05-30 16:18] LABS: PARTIAL THROMBOPLASTIN TIME 28.9 Seconds (25.6-37.1)
[2018-05-30 16:21] LABS: PROTHROMBIN TIME 9.8 Seconds (9.8-13.1)
[2018-05-30 18:26] LABS: BASO % 0.1 % (0.0-2.0); EOS % 0.1 % (0.0-4.0); HEMOGLOBIN 8.8 g/dL (12.0-16.0); LYMPH # 0.4 K/uL (1.0-4.3); MEAN CELL VOLUME 90.1 fl (81.0-99.0); MEAN CORPUSCULAR HEMOGLOBIN 29.9 pg (27.0-31.0); MEAN CORPUSCULAR HGB CONC 33.2 g/dL (33.0-37.0); MEAN PLATELET VOLUME 9.1 fl (7.2-11.7); MONO # 0.3 K/uL (0.0-0.8); MONO % 4.2 % (0.0-10.0); NEUT # 6.6 K/uL (1.8-7.0); NEUT % 90.6 % (50.0-75.0); PLATELET COUNT 343 K/uL (130-400); RBC 2.95 Mil/uL (3.80-5.20); RED CELL DISTRIBUTION WIDTH 13.9 % (11.5-14.5); WHITE BLOOD COUNT 7.3 K/uL (4.8-10.8)
[2018-05-30 19:58] LABS: BANDS 1 % (0-2); LYMPHOCYTE 6 % (20-50); METAMYELOCYTE 1 % (0-0); MONOCYTE 1 % (0-10); NEUTROPHIL 91 % (42-75); TOTAL CELLS COUNTED 100
[2018-05-30 19:59] LABS: ANISOCYTOSIS SLIGHT; LARGE PLATELETS PRESENT; OVALOCYTES SLIGHT; POIKILOCYTOSIS SLIGHT
[2018-05-30 21:26] LABS: PLATELET ESTIMATE NORMAL (NORMAL)
[2018-05-31 05:32] LABS: BASO % 0.1 % (0.0-2.0); EOS % 0.1 % (0.0-4.0); HEMOGLOBIN 7.5 g/dL (12.0-16.0); LYMPH # 0.7 K/uL (1.0-4.3); LYMPH % 12.8 % (20.0-40.0); MEAN CORPUSCULAR HGB CONC 33.3 g/dL (33.0-37.0); MONO # 0.8 K/uL (0.0-0.8); MONO % 14.8 % (0.0-10.0); NEUT % 72.2 % (50.0-75.0); RBC 2.51 Mil/uL (3.80-5.20); RED CELL DISTRIBUTION WIDTH 13.8 % (11.5-14.5); WHITE BLOOD COUNT 5.5 K/uL (4.8-10.8)
[2018-05-31 05:53] LABS: BLOOD UREA NITROGEN 24 mg/dl (7-17); CALCIUM 8.5 mg/dL (8.4-10.2); GFR NON-AFRICAN AMERICAN > 60
[2018-05-31] MEDS: Ipratropium 0.02% Inhal Soln (0.5 mg/2.5 ml) UD IH SCH ×2 (07:29→19:03)
[2018-05-31 12:45] LABS: IRON 59 ug/dL (37-170)
[2018-05-31 12:55] LABS: % IRON SATURATION 28 % (20-55); TOTAL IRON BINDING CAPACITY 211 ug/dL (250-450)
--- NOTE | 2018-05-31 14:30 | CP.PCM.PN ---
Subjective - Date & Time of Evaluation Date of Evaluation: 05/31/18 Time of Evaluation: 11:00 - Subjective Subjective: no AD, smiling, no abdominal pain, no hematuria, no rectal bleeding Objective - Vital Signs/Intake and Output Vital Signs (last 24 hours): Temp Pulse Resp BP Pulse Ox 97.2 F L 64 20 95/62 L 100 05/31/18 12:59 05/31/18 12:59 05/31/18 12:59 05/31/18 12:59 05/31/18 12:59 - Medications Medications: Current Medications Acetazolamide (Diamox 250 Mg Tab) 250 mg PO BID [facility] Last Admin: 05/31/18 09:41 Dose: 250 mg Amiodarone HCl (Cordarone) 200 mg PO DAILY [facility] Last Admin: 05/31/18 09:40 Dose: 200 mg Bisoprolol Fumarate (Zebeta) 10 mg PO DAILY [facility] Last Admin: 05/31/18 09:41 Dose: 10 mg Ipratropium [place] (Atrovent) 0.5 mg IH RBID [facility] Last Admin: 05/31/18 07:29 Dose: 0.5 mg Levalbuterol HCl (Xopenex) 0.63 mg INH RQ8 PRN PRN Reason: Shortness of Breath Last Admin: 05/28/18 19:27 Dose: 0.63 mg Losartan Potassium (Cozaar) 100 mg PO DAILY [facility] Last Admin: 05/31/18 09:41 Dose: 100 mg - Labs Labs: 05/31/18 04:25 05/31/18 04:25 PT 9.8 Seconds (9.8-13.1) 05/30/18 15:30 INR 0.9 05/30/18 15:30 APTT 28.9 Seconds (25.6-37.1) 05/30/18 15:30 - Constitutional Appears: No Acute Distress - Head Exam Head Exam: NORMAL INSPECTION - Eye Exam Eye Exam: PERRL - ENT Exam ENT Exam: Normal Exam - Neck Exam Neck Exam: Normal Inspection - Respiratory Exam Respiratory Exam: Decreased Breath Sounds (at bases) - Cardiovascular Exam Cardiovascular Exam: REGULAR RHYTHM, Murmur - GI/Abdominal Exam GI & Abdominal Exam: Soft, Normal Bowel Sounds Additional comments: R inguinal, no tenderness, old ecchymosis - Extremities Exam Additional comments: chronic distal legs skin changes - Back Exam Back Exam: NORMAL INSPECTION - Neurological Exam Neurological Exam: Alert Additional comments: generalized weakness Assessment and Plan (1) NSTEMI (non-ST elevated myocardial infarction) Status: Acute (2) Prolonged Q-T interval on ECG Status: Acute (3) Emphysema of lung Status: Chronic (4) COPD (chronic obstructive pulmonary disease) Status: Chronic (5) Hx of CABG Status: Chronic (6) 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
--- NOTE | 2018-05-31 15:02 | US ---
Date of service: 05/29/2018 PROCEDURE: Duplex ultrasound of the right lower extremity arteries. HISTORY: ro pseudoaneurysm COMPARISON: None available. TECHNIQUE: Grayscale and duplex Doppler evaluation of the right common femoral, superficial femoral, popliteal, posterior tibial and dorsalis pedis arteries was performed.. FINDINGS: Right COMMON FEMORAL ARTERY: Patent. No appreciable pseudoaneurysm is noted. Right SUPERFICIAL FEMORAL ARTERY:Patent. No pseudoaneurysm seen. In the right groin region in the area of catheterization there is heterogeneity of the anterior subcutaneous and slightly deeper soft tissues without vascular flow. Finding suggests hematoma without pseudoaneurysm. No appreciable to and fro flow was identified to suggest pseudoaneurysm. OTHER FINDINGS: None. IMPRESSION: No ultrasound evidence of right groin pseudoaneurysm. Heterogeneity of the right groin catheterization region soft tissues suggestive of hematoma. This agrees with preliminary report.
[2018-05-31 19:39] LABS: HEMOGLOBIN 9.2 g/dL (12.0-16.0); MEAN CELL VOLUME 91.2 fl (81.0-99.0); MEAN CORPUSCULAR HEMOGLOBIN 29.8 pg (27.0-31.0); MEAN CORPUSCULAR HGB CONC 32.7 g/dL (33.0-37.0); RBC 3.09 Mil/uL (3.80-5.20); RED CELL DISTRIBUTION WIDTH 14.2 % (11.5-14.5); WHITE BLOOD COUNT 8.3 K/uL (4.8-10.8)
[2018-05-31] MEDS: Docusate-Senna 50 mg-8.6 mg Tab PO SCH (21:43)
[2018-06-01 06:12] LABS: HEMOGLOBIN 8.9 g/dL (12.0-16.0); MEAN CELL VOLUME 90.6 fl (81.0-99.0); MEAN CORPUSCULAR HEMOGLOBIN 29.8 pg (27.0-31.0); MEAN CORPUSCULAR HGB CONC 32.9 g/dL (33.0-37.0); RBC 2.99 Mil/uL (3.80-5.20); RED CELL DISTRIBUTION WIDTH 14.2 % (11.5-14.5); WHITE BLOOD COUNT 7.8 K/uL (4.8-10.8)
[2018-06-01 06:28] LABS: BLOOD UREA NITROGEN 20 mg/dl (7-17); CALCIUM 8.4 mg/dL (8.4-10.2); GFR NON-AFRICAN AMERICAN > 60
[2018-06-01] MEDS: Ipratropium 0.02% Inhal Soln (0.5 mg/2.5 ml) UD IH SCH (07:30)
--- NOTE | 2018-06-01 09:14 | CARD ---
APPROVED REPORT Date of service: 05/29/2018 EKG Measurement Heart [id number] CT [id number] <Conclusion> NSR NST & T wave abnormality prolonged QT Abnormal ECG
[2018-06-01 13:53] LABS: FOLATE 10.6 ng/mL
--- NOTE | 2018-06-01 15:44 | CP.PCM.PN ---
Subjective - Date & Time of Evaluation Date of Evaluation: 06/01/18 - Subjective Subjective: F/U NSTEMI no AD ,smiling, N/C Objective - Vital Signs/Intake and Output Vital Signs (last 24 hours): Temp Pulse Resp BP Pulse Ox 97.8 F 65 20 95/52 L 97 06/01/18 15:31 06/01/18 15:31 06/01/18 15:31 06/01/18 15:31 06/01/18 15:31 - Medications Medications: Current Medications Acetazolamide (Diamox 250 Mg Tab) 250 mg PO BID [facility] Last Admin: 06/01/18 09:38 Dose: Not Given Amiodarone HCl (Cordarone) 200 mg PO DAILY [facility] Last Admin: 06/01/18 09:37 Dose: Not Given Aspirin (Ecotrin) 81 mg PO DAILY [facility] Last Admin: 06/01/18 09:52 Dose: 81 mg Benzonatate (Tessalon Perles) 100 mg PO TID [facility] Last Admin: 06/01/18 13:11 Dose: Not Given Bisoprolol Fumarate (Zebeta) 5 mg PO DAILY [facility] Last Admin: 06/01/18 09:37 Dose: Not Given Clopidogrel Bisulfate (Plavix) 75 mg PO DAILY [facility] Last Admin: 06/01/18 09:53 Dose: 75 mg Losartan Potassium (Cozaar) 25 mg PO DAILY [facility] Last Admin: 06/01/18 09:36 Dose: Not Given Senna/Docusate Sodium (Senokot S 50 Mg-8.6 Mg) 1 tab PO HS [facility] Last Admin: 05/31/18 21:43 Dose: 1 tab - Labs Labs: 06/01/18 06:00 06/01/18 06:00 PT 9.8 Seconds (9.8-13.1) 05/30/18 15:30 INR 0.9 05/30/18 15:30 APTT 28.9 Seconds (25.6-37.1) 05/30/18 15:30 - Constitutional Appears: No Acute Distress - Head Exam Head Exam: NORMAL INSPECTION - Eye Exam Eye Exam: PERRL - ENT Exam ENT Exam: Normal Exam - Neck Exam Neck Exam: Normal Inspection - Respiratory Exam Respiratory Exam: Decreased Breath Sounds (at bases) - Cardiovascular Exam Cardiovascular Exam: REGULAR RHYTHM, Murmur - GI/Abdominal Exam GI & Abdominal Exam: Soft, Normal Bowel Sounds Additional comments: R inguinal no tenderness , old ecchymosis. - Extremities Exam Additional comments: Chronic distal legs skin changes - Back Exam Back Exam: NORMAL INSPECTION - Neurological Exam Neurological Exam: Alert, CN II-XII Intact Additional comments: No focal motor/sensory deficit, generalized weakness - Psychiatric Exam Psychiatric exam: Normal Affect, Normal Mood - Skin Skin Exam: Warm Assessment and Plan (1) NSTEMI (non-ST elevated myocardial infarction) Status: Acute (2) Prolonged Q-T interval on ECG Status: Acute (3) Emphysema of lung Status: Chronic (4) COPD (chronic obstructive pulmonary disease) Status: Chronic (5) Hx of CABG Status: Chronic (6) 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
[2018-06-01] MEDS: Docusate-Senna 50 mg-8.6 mg Tab PO SCH (21:59)
[2018-06-02 05:49] LABS: MEAN CELL VOLUME 90.8 fl (81.0-99.0); MEAN CORPUSCULAR HEMOGLOBIN 30.3 pg (27.0-31.0); MEAN CORPUSCULAR HGB CONC 33.3 g/dL (33.0-37.0); RBC 2.99 Mil/uL (3.80-5.20); RED CELL DISTRIBUTION WIDTH 14.2 % (11.5-14.5)
[2018-06-02 05:56] LABS: BLOOD UREA NITROGEN 18 mg/dl (7-17); CALCIUM 8.5 mg/dL (8.4-10.2); GFR NON-AFRICAN AMERICAN > 60
--- NOTE | 2018-06-02 14:01 | CP.PCM.PN ---
Subjective - Date & Time of Evaluation Date of Evaluation: 06/02/18 Time of Evaluation: 14:45 - Subjective Subjective: no complaints. no cp or sob. vss. hb stable x 36 hours. pt denies coughing or straining for last 24 hours. daughter at bedside Objective - Vital Signs/Intake and Output Vital Signs (last 24 hours): Temp Pulse Resp BP Pulse Ox 97.7 F 66 20 103/56 L 96 06/02/18 13:00 06/02/18 13:00 06/02/18 13:00 06/02/18 13:00 06/02/18 13:00 - Medications Medications: Current Medications Acetazolamide (Diamox 250 Mg Tab) 250 mg PO BID [facility] Last Admin: 06/02/18 09:33 Dose: 250 mg Amiodarone HCl (Cordarone) 200 mg PO DAILY [facility] Last Admin: 06/02/18 09:34 Dose: 200 mg Aspirin (Ecotrin) 81 mg PO DAILY [facility] Last Admin: 06/02/18 09:35 Dose: 81 mg Benzonatate (Tessalon Perles) 100 mg PO TID [facility] Last Admin: 06/02/18 13:31 Dose: Not Given Bisoprolol Fumarate (Zebeta) 5 mg PO DAILY [facility] Last Admin: 06/02/18 09:36 Dose: 5 mg Clopidogrel Bisulfate (Plavix) 75 mg PO DAILY [facility] Last Admin: 06/01/18 09:53 Dose: 75 mg Losartan Potassium (Cozaar) 25 mg PO DAILY [facility] Last Admin: 06/02/18 09:34 Dose: 25 mg Senna/Docusate Sodium (Senokot S 50 Mg-8.6 Mg) 1 tab PO HS [facility] Last Admin: 06/01/18 21:59 Dose: 1 tab - Labs Labs: 06/02/18 05:24 06/02/18 05:24 PT 9.8 Seconds (9.8-13.1) 05/30/18 15:30 INR 0.9 05/30/18 15:30 APTT 28.9 Seconds (25.6-37.1) 05/30/18 15:30 - Constitutional Appears: Well - Head Exam Head Exam: ATRAUMATIC, NORMAL INSPECTION, NORMOCEPHALIC - Eye Exam Eye Exam: EOMI, Normal appearance, PERRL. absent: Conjunctival injection, Nystagmus, Periorbital swelling, Periorbital tenderness, Scleral icterus Pupil Exam: NORMAL ACCOMODATION, PERRL - ENT Exam ENT Exam: Mucous Membranes Moist, Normal Exam. absent: Mucous Membranes Dry, Normal External Ear Exam, Normal Oropharynx, TM's Normal Bilaterally - Neck Exam Neck Exam: Full ROM, Normal Inspection. absent: Lymphadenopathy, Meningismus, Tenderness, Thyromegaly - Respiratory Exam Respiratory Exam: Clear to Ausculation Bilateral, NORMAL BREATHING PATTERN. absent: Accessory Muscle Use, Chest Wall Tenderness, Decreased Breath Sounds, Prolonged Expiratory Phase, Rales, Rhonchi, Wheezes, Respiratory Distress, Stridor - Cardiovascular Exam Cardiovascular Exam: REGULAR RHYTHM, +S1, +S2, Murmur. absent: Bradycardia, Tachycardia, Clicks, Diastolic murmur, Gallop, Irregular Rhythm, JVD, RRR, Rubs , +S4 - GI/Abdominal Exam GI & Abdominal Exam: Soft, Normal Bowel Sounds. absent: Bruit, Distended, Firm , Guarding, Rigid, Tenderness, Diminished Bowel Sounds, Hernia, Hyperactive Bowel Sounds, Hypoactive Bowel Sounds, Organomegaly, Pulsatile Mass, Rebound, Mass - Rectal Exam Rectal Exam: Deferred - Extremities Exam Extremities Exam: Full ROM, Normal Capillary Refill, Normal Inspection. absent : Calf Tenderness, Joint Swelling, Pedal Edema, Tenderness - Back Exam Back Exam: absent: CVA tenderness (L), CVA tenderness (R), Full ROM, muscle spasm, NORMAL INSPECTION, paraspinal tenderness, rash noted, tenderness, vertebral tenderness Additional comments: large groin and r flank ecchymosis with palpable hematoma. enlarged since last examination - Neurological Exam Neurological Exam: Alert, Awake, CN II-XII Intact, Normal Gait, Oriented x3. absent: Abnormal Gait, Altered, Motor Sensory Deficit, Reflexes Normal - Psychiatric Exam Psychiatric exam: Normal Affect, Normal Mood. absent: Agitated, Anxious, Depressed, Flat Affect, Homicidal Ideation, Manic, Suicidal Ideation - Skin Skin Exam: Dry, Intact, Normal Color, Warm. 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 As such pt will need dual antiplts [facility] [place] [facility]. we may hold plavix for 1 week, however would restart thereafter. pt should be monitored with daily hb for 2-3 more days. preferably daily hb at rehab as well. on d/c pt should continue losartan 25 and bisoprolol 10. she will f/u 1 week after rehab. WOULD OUTLINE THE HEMATOMA WITH A MARKER, TO AID IN FUTURE EVALUATION OF INCREASE.
--- NOTE | 2018-06-02 15:04 | CP.PCM.PN ---
Subjective - Date & Time of Evaluation Date of Evaluation: 06/02/18 Time of Evaluation: 12:20 - Subjective Subjective: F/u NSTEMI no AD, smiling, N/C of abdominal pain, no R inguinal pain Objective - Vital Signs/Intake and Output Vital Signs (last 24 hours): Temp Pulse Resp BP Pulse Ox 97.7 F 66 20 103/56 L 96 06/02/18 13:00 06/02/18 13:00 06/02/18 13:00 06/02/18 13:00 06/02/18 13:00 - Medications Medications: Current Medications Acetazolamide (Diamox 250 Mg Tab) 250 mg PO BID [facility] Last Admin: 06/02/18 09:33 Dose: 250 mg Amiodarone HCl (Cordarone) 200 mg PO DAILY [facility] Last Admin: 06/02/18 09:34 Dose: 200 mg Aspirin (Ecotrin) 81 mg PO DAILY [facility] Last Admin: 06/02/18 09:35 Dose: 81 mg Benzonatate (Tessalon Perles) 100 mg PO TID [facility] Last Admin: 06/02/18 13:31 Dose: Not Given Bisoprolol Fumarate (Zebeta) 5 mg PO DAILY [facility] Last Admin: 06/02/18 09:36 Dose: 5 mg Clopidogrel Bisulfate (Plavix) 75 mg PO DAILY [facility] Last Admin: 06/01/18 09:53 Dose: 75 mg Losartan Potassium (Cozaar) 25 mg PO DAILY [facility] Last Admin: 06/02/18 09:34 Dose: 25 mg Senna/Docusate Sodium (Senokot S 50 Mg-8.6 Mg) 1 tab PO HS [facility] Last Admin: 06/01/18 21:59 Dose: 1 tab - Labs Labs: 06/02/18 05:24 06/02/18 05:24 PT 9.8 Seconds (9.8-13.1) 05/30/18 15:30 INR 0.9 05/30/18 15:30 APTT 28.9 Seconds (25.6-37.1) 05/30/18 15:30 - Constitutional Appears: No Acute Distress - Head Exam Head Exam: NORMAL INSPECTION - Eye Exam Eye Exam: PERRL - ENT Exam ENT Exam: Normal Exam - Neck Exam Neck Exam: Normal Inspection - Respiratory Exam Respiratory Exam: Decreased Breath Sounds (at bases) - Cardiovascular Exam Cardiovascular Exam: REGULAR RHYTHM, Murmur - GI/Abdominal Exam GI & Abdominal Exam: Soft, Normal Bowel Sounds Additional comments: R inguinal area with no tenderness, old ecchymosis. - Extremities Exam Additional comments: Chronic distal legs skin changes - Back Exam Back Exam: NORMAL INSPECTION - Neurological Exam Neurological Exam: Alert, CN II-XII Intact Additional comments: forgetful at times, no focal motor/sensory deficit, generalized weakness - Psychiatric Exam Psychiatric exam: Normal Affect, Normal Mood - Skin Skin Exam: Warm Assessment and Plan (1) NSTEMI (non-ST elevated myocardial infarction) Status: Acute (2) Prolonged Q-T interval on ECG Status: Acute (3) Emphysema of lung Status: Chronic (4) COPD (chronic obstructive pulmonary disease) Status: Chronic (5) Hx of CABG Status: Chronic (6) 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
--- NOTE | 2018-06-02 15:40 | CP.PCM.PCO ---
Assessment/Plan - Assessment and Plan (Free Text) Assessment: Patient seen and examined. Plan discussed with MD, will resume rx aspirin and hold plavix until 06/09, then resume medication Follow daily cbc at [facility] and monitor hematoma Pt will be followed by Dr Pond in [facility].
[2018-06-02] MEDS: Docusate-Senna 50 mg-8.6 mg Tab PO SCH ×2 (21:32→21:34)
[2018-06-03 10:36] LABS: HEMOGLOBIN 9.9 g/dL (12.0-16.0); MEAN CELL VOLUME 90.4 fl (81.0-99.0); MEAN CORPUSCULAR HEMOGLOBIN 30.3 pg (27.0-31.0); MEAN CORPUSCULAR HGB CONC 33.5 g/dL (33.0-37.0); RBC 3.28 Mil/uL (3.80-5.20); RED CELL DISTRIBUTION WIDTH 14.1 % (11.5-14.5); WHITE BLOOD COUNT 12.6 K/uL (4.8-10.8)
[2018-06-03 12:26] VITALS: BP 96/54; PULSE 64; RESP 18; TEMP 98.2; O2SAT 94
--- NOTE | 2018-06-03 15:58 | CP.PCM.DIS ---
Provider - Provider Date of Admission: 05/21/18 20:18 Attending physician: Jeremi Pond MD Consults: 05/22/18 04:23 Social Work Referral Routine Comment: Lives alone Physician Instructions: Reason For Exam: Lives alone Cardiology-Dr. Johnson Critical Care-Dr. Dubois Time Spent in preparation of Discharge (in minutes): 35 Diagnosis - Discharge Diagnosis (1) NSTEMI (non-ST elevated myocardial infarction) Status: Acute Priority: High (2) Prolonged Q-T interval on ECG Status: Acute Priority: High (3) Emphysema of lung Status: Chronic Priority: High (4) COPD (chronic obstructive pulmonary disease) Status: Chronic Priority: High (5) Hx of CABG Status: Chronic Priority: High (6) Hx of four vessel coronary artery bypass graft Status: Chronic Priority: High (7) HTN (hypertension) Status: Chronic Priority: Medium (8) Dyslipidemia Status: Chronic Priority: Medium (9) History of tobacco abuse Status: Chronic Priority: Medium (10) Anemia due to acute blood loss Status: Acute (11) Retroperitoneal hematoma Status: Acute (12) Intra-abdominal hematoma Status: Acute Hospital Course - Lab Results Lab Results: Micro Results 05/21/18 14:44 Blood-Venous Blood Culture - Final NO GROWTH AFTER 5 DAYS 05/21/18 14:44 Blood-Venous Gram Stain - Final TEST NOT PERFORMED 05/21/18 14:44 Blood-Venous Blood Culture - Final NO GROWTH AFTER 5 DAYS 05/21/18 14:44 Blood-Venous Gram Stain - Final TEST NOT PERFORMED Most Recent Lab Values WBC 12.6 K/uL (4.8-10.8) H D 06/03/18 10:24 RBC 3.28 Mil/uL (3.80-5.20) L 06/03/18 10:24 Hgb 9.9 g/dL (12.0-16.0) L 06/03/18 10:24 Hct 29.7 % (34.0-47.0) L 06/03/18 10:24 MCV 90.4 fl (81.0-99.0) 06/03/18 10:24 MCH 30.3 pg (27.0-31.0) 06/03/18 10:24 MCHC 33.5 g/dL (33.0-37.0) 06/03/18 10:24 RDW 14.1 % (11.5-14.5) 06/03/18 10:24 Plt Count 376 K/uL (130-400) 06/03/18 10:24 MPV 9.0 fl (7.2-11.7) 05/31/18 04:25 Neut % (Auto) 72.2 % (50.0-75.0) 05/31/18 04:25 Lymph % (Auto) 12.8 % (20.0-40.0) L 05/31/18 04:25 [place] % (Auto) 14.8 % (0.0-10.0) H 05/31/18 04:25 Eos % (Auto) 0.1 % (0.0-4.0) 05/31/18 04:25 Baso % (Auto) 0.1 % (0.0-2.0) 05/31/18 04:25 Neut # (Auto) 4.0 K/uL (1.8-7.0) 05/31/18 04:25 Lymph # (Auto) 0.7 K/uL (1.0-4.3) L 05/31/18 04:25 [place] # (Auto) 0.8 K/uL (0.0-0.8) 05/31/18 04:25 Eos # (Auto) 0.0 K/uL (0.0-0.7) 05/31/18 04:25 Baso # (Auto) 0.0 K/uL (0.0-0.2) 05/31/18 04:25 Neutrophils % (Manual) 91 % (42-75) H 05/30/18 18:00 Band Neutrophils % 1 % (0-2) 05/30/18 18:00 Lymphocytes % (Manual) 6 % (20-50) L 05/30/18 18:00 Monocytes % (Manual) 1 % (0-10) 05/30/18 18:00 Metamyelocytes % 1 % (0-0) H 05/30/18 18:00 Toxic Granulation Present 05/30/18 05:00 Platelet Estimate Normal (NORMAL) 05/30/18 18:00 Large Platelets Present 05/30/18 18:00 Hypochromasia (manual) Moderate 05/30/18 05:00 Poikilocytosis (manual Slight 05/30/18 18:00 Anisocytosis (manual) Slight 05/30/18 18:00 Ovalocytes Slight 05/30/18 18:00 ESR 12 mm/hr (0-30) 05/25/18 04:50 PT 9.8 Seconds (9.8-13.1) 05/30/18 15:30 INR 0.9 05/30/18 15:30 APTT 28.9 Seconds (25.6-37.1) 05/30/18 15:30 Sodium 133 mmol/l (132-148) 06/02/18 05:24 Potassium 4.1 MMOL/L (3.6-5.0) 06/02/18 05:24 Chloride 98 mmol/L (98-107) 06/02/18 05:24 Carbon Dioxide 33 mmol/L (22-30) H 06/02/18 05:24 Anion Gap 6 (10-20) L 06/02/18 05:24 BUN 18 mg/dl (7-17) H 06/02/18 05:24 Creatinine 0.6 mg/dl (0.7-1.2) L 06/02/18 05:24 Est GFR ( Amer) > 60 06/02/18 05:24 Est GFR (Non-Af Amer) > 60 06/02/18 05:24 Random Glucose 95 mg/dL (65-105) 06/02/18 05:24 Calcium 8.5 mg/dL (8.4-10.2) 06/02/18 05:24 Magnesium 2.1 MG/DL (1.6-2.3) 05/30/18 05:00 Iron 59 ug/dL (37-170) 05/31/18 11:30 TIBC 211 ug/dL (250-450) L 05/31/18 11:30 % Saturation 28 % (20-55) 05/31/18 11:30 Ferritin 122.0 ng/Ml (11.1-264.0) 05/31/18 11:30 Total Bilirubin 1.4 mg/dl (0.2-1.3) H 05/29/18 18:03 AST 20 U/L (14-36) 05/29/18 18:03 ALT 23 U/L (9-52) 05/29/18 18:03 Alkaline Phosphatase 53 U/L (38-126) 05/29/18 18:03 Troponin I 0.0570 ng/mL (0.00-0.120) 05/25/18 08:08 C-React Prot High Sens 1.86 mg/L (1.00-3.00) 05/25/18 04:50 NT-Pro-B Natriuret Pep 16275 pg/ml (0-900) H 05/25/18 04:50 Total Protein 5.9 G/DL (6.3-8.2) L 05/29/18 18:03 Albumin 3.5 g/dL (3.5-5.0) 05/29/18 18:03 Globulin 2.3 gm/dL (2.2-3.9) 05/29/18 18:03 Albumin/Globulin Ratio 1.5 (1.0-2.1) 05/29/18 18:03 Triglycerides 87 mg/DL (0-149) 05/22/18 06:00 Cholesterol 184 mg/dL (0-199) 05/22/18 06:00 LDL Cholesterol Direct 94 mg/dL (0-129) 05/22/18 06:00 HDL Cholesterol 57 MG/DL (30-70) 05/22/18 06:00 Vitamin B12 653 pg/mL (239-931) 05/31/18 11:30 Folate 10.6 ng/mL 05/31/18 11:30 Free T4 1.45 ng/dL (0.78-2.19) 05/25/18 04:50 Thyroxine (T4) 8.22 ug/dl (5.5-11.0) 05/22/18 06:00 Total T3 0.582 nmol/L (1.49-2.60) L 05/25/18 04:50 TSH 3rd Generation 1.52 mIU/ML (0.46-4.68) 05/25/18 04:50 Blood Type O POSITIVE 05/29/18 17:33 Blood Type Confirm O POSITIVE 05/29/18 20:11 Antibody Screen Negative 05/29/18 17:33 Crossmatch See Detail 05/29/18 17:33 BBK History Checked No verified bt 05/29/18 17:33 - Date & Time of H&P Date of H&P: 05/22/18 Time of H&P: 14:30 Discharge Exam - Head Exam Head Exam: NORMAL INSPECTION - Eye Exam Eye Exam: PERRL - ENT Exam ENT Exam: Normal Exam - Neck Exam Neck exam: Normal Inspection - Respiratory Exam Respiratory Exam: Decreased Breath Sounds (at bases) - Cardiovascular Exam Cardiovascular Exam: REGULAR RHYTHM Additional comments: Murmur - GI/Abdominal Exam GI & Abdominal Exam: Normal Bowel Sounds, Soft Additional comments: R inguinal area with no tenderness, old ecchymosis - Extremities Exam Additional comments: Chronic distal leg skin changes - Back Exam Back exam: NORMAL INSPECTION - Neurological Exam Neurological exam: Alert, CN II-XII Intact Additional comments: forgetful at times, no focal motor sensory deficit, generalized weakness. - Psychiatric Exam Psychiatric exam: Normal Affect, Normal Mood - Skin Skin Exam: Warm Discharge Plan - Follow Up Plan Condition: SERIOUS Disposition: REHAB FACILITY/REHAB UNIT Instructions: Heart Attack (DC), Hypertension (DC), Hypertension (GEN) Referrals: Andrés Lang MD [Medical Doctor] - Jeremi Pond MD [Staff Provider] - Giovanni Johnson MD [Staff Provider] -
== END 2018-06-03 13:35 | DRG 228 ==
LOC: H.ER 12:51 → H.ERHOLD 20:18 → H.TEL 23:20 → H.ICU/CCU 05-26 14:34 → H.TEL 05-27 08:49
PROVIDERS: ADMIT Internal Medicine Pulmonary Disease; ATTEND Internal Medicine Pulmonary Disease
PROC: 021 Heart and Great Vessels, Bypass (ICD-10-PCS; 2018-05-25)
PROC: 4A023N7 Measurement of Cardiac Sampling and Pressure, Left Heart, Percutaneous Approach (ICD-10-PCS; 2018-05-25)
PROC: B205YZZ Plain Radiography of Left Heart using Other Contrast (ICD-10-PCS; 2018-05-25)
PROC: 30233N1 Transfusion of Nonautologous Red Blood Cells into Peripheral Vein, Percutaneous Approach (ICD-10-PCS; principal; 2018-05-31)
DX: I21.4 Non-ST elevation (NSTEMI) myocardial infarction (principal); K66.1 Hemoperitoneum; D62 Acute posthemorrhagic anemia; E87.3 Alkalosis; E87.6 Hypokalemia; I50.9 Heart failure, unspecified; I11.0 Hypertensive heart disease with heart failure; I25.10 Atherosclerotic heart disease of native coronary artery without angina pectoris; J43.9 Emphysema, unspecified; E78.5 Hyperlipidemia, unspecified; R09.02 Hypoxemia; Z95.1 Presence of aortocoronary bypass graft; Z99.81 Dependence on supplemental oxygen; Z87.891 Personal history of nicotine dependence; Z79.02 Long term (current) use of antithrombotics/antiplatelets; Z79.82 Long term (current) use of aspirin